=== PATIENT | female | born 1950 | race Two or more races ===

== ENCOUNTER 2024-06-22 04:05 | Inpatient (IN) | payer OTHER ==
[~2024-06-22] VITALS: Ht 177.8 cm; Wt 96.2 kg
[2024-06-22] VITALS (9 sets, daily range): BP systolic 106–149; BP diastolic 51–74; PULSE 65–78; RESP 17–22; TEMP 97.7–99.4; O2SAT 90–97
--- NOTE | 2024-06-22 04:21 | ED.PDOC ---
History of Present Illness HPI Comments 73-year-old female with PMHx COPD presents with a chief complaint of SOB, dry mouth, loss of taste, and generalized weakness. Patient mentions that she has been feeling this way since 06/16/2024. Patient mentions that she believed that she was going to get better, but states that she has only been getting worse. Per EMS, she was given a dual nebulizer treatment and is now sating at 91% on 2L. Chief Complaint: Shortness of Breath Time Seen by MD: 04:08 Reviewed Notes: Medications, Allergies Allergies: Coded Allergies: Penicillins (Verified Allergy, Unknown, 06/22/24) Information Source: Patient, Emergency Med Personnel Mode of Arrival: EMS Severity: Moderate Timing: Days Duration: Since onset Prehospital treatment: None Past Medical History PAST MEDICAL HISTORY: COPD Surgical History: Denies all surgeries LOCKSTITCH BINDER History: Denies all LOCKSTITCH BINDER Hx Family History Family History: Reviewed,noncontributory to illness Social History Smoker: Non-Smoker Alcohol: Denies ETOH Use Drugs: Denies Drug Use Lives In: Home Constitutional: reports: weakness; denies: chills, diaphoresis, fatigue, fever, malaise, sweats, others EENTM: denies: blurred vision, double vision, ear bleeding, ear discharge, ear drainage, ear pain, ear ringing, eye pain, eye redness, hearing loss, mouth pain, mouth swelling, nasal discharge, nose bleeding, nose congestion, nose pain, photophobia, tearing, throat pain, throat swelling, voice changes, others Respiratory: reports: shortness of breath; denies: cough, hemoptysis, orthopnea, SOB at rest, SOB with excertion, stridor, wheezing, others Cardiovascular: denies: chest pain, dizzy spells, diaphoresis, Dyspnea on exertion, edema, irregular heart beat, left arm pain, lightheadedness, palpitations, PND, syncope, others Gastrointestinal: denies: abdomen distended, abdominal pain, blood streaked bowels, constipated, diarrhea, dysphagia, difficulty swallowing, hematemesis, melena, nausea, poor appetite, poor fluid intake, rectal bleeding, rectal pain, vomiting, others Genitourinary: denies: abnormal vagina bleeding, burning, dyspareunia, dysuria, flank pain, frequency, hematuria, incontinence, pain, , vagina discharge, urgency, others Neurological: denies: dizziness, fainting, headache, left sided numbness, left sided weakness, numbness, paresthesia, pre-existing deficit, right sided numbness, right sided weakness, seizure, speech problems, tingling, tremors, weakness, others Musculoskeletal: denies: back pain, gout, joint pain, joint swelling, muscle pain, muscle stiffness, neck pain, others Integumetry: denies: bruises, change in color, change in hair/nails, dryness, laceration, lesions, lumps, rash, wounds, others Allergic/Immunocompromised: denies: Difficulty Healing, Frequent Infections, Hives, Itching, others Hematologic/Lymphatic: denies: anemia, blood clots, easy bleeding, easy bruising, swollen glands, others Endocrine: reports: excessive thirst; denies: excessive hunger, excessive sweating, excessive urination, flushing, intolerance to cold, intolerance to heat, unexplained weight gain, unexplained weight loss, others Psychiatric: denies: anxiety, bipolar disorder, depression, hopeless, panic disorder, schizophrenia, sleepless, suicidal, others All Other Systems: Reviewed and Negative Physical Exam General Appearance: No Apparent Distress, Normal HEENT: Normal ENT Inspection, Pharynx Normal, TMs Normal Neck: Full Range of Motion, Non-Tender, Normal, Normal Inspection Respiratory: Chest Non-Tender, Lungs Clear, No Accessory Muscle Use, No Respiratory Distress, Normal Breath Sounds Cardiovascular: No Edema, No JVD, No Murmur, No Gallop, Normal Peripheral Pulses, Regular Rate/Rhythm Breast Exam: Deferred Gastrointestinal: No Organomegaly, Non Tender, No Pulsatile Mass, Normal Bowel Sounds, Soft Genitalia: Deferred Pelvic: Deferred Rectal: Deferred Extremities: No calf tenderness, Normal capillary refill, Normal inspection, Normal range of motion, Non-tender, No pedal edema Musculoskeletal : Apperance: Normal Neurologic: Alert, bio medical technician II-XII nml as Tested, No Motor Deficits, Normal Affect, Normal Mood, No Sensory Deficits Cerebellar Function: Normal Reflexes: Normal Skin: Dry, Normal Color, Warm Lymphatic: No Adenopathy Was a procedure done? Was a procedure done?: No Differential Dx Considerations may include: Differential diagnosis includes but is not limited to: asthma, pneumonia, congestive heart failure, pleural effusion, empyema, pulmonary embolus, and others X-Ray, Labs, Meds, VS Vital Signs Date Time Temp Pulse Resp B/P (MAP) Pulse Ox O2 Delivery O2 Flow Rate FiO2 06/22/24 05:16 99.4 76 20 129/54 (79) 95 99.4 06/22/24 05:16 76 20 97 Nasal Cannula* 2 28 06/22/24 04:42 18 98 Nasal Cannula* 3 32 06/22/24 04:18 80 06/22/24 04:13 99.8 82 18 117/71 (86) 99 Lab Test 06/22/24 04:49 Range/Units White Blood Count Pending Red Blood Count Pending Hemoglobin Pending Hematocrit Pending Mean Corpuscular Volume Pending Mean Corpuscular Hemoglobin Pending Mean Corpuscular Hemoglobin Concent Pending Red Cell Distribution Width Pending Platelet Count Pending Mean Platelet Volume Pending Neutrophils (%) (Auto) Pending Lymphocytes (%) (Auto) Pending Monocytes (%) (Auto) Pending Basophils (%) (Auto) Pending Neutrophils # (Auto) Pending Lymphocytes # (Auto) Pending Monocytes # (Auto) Pending Sodium Level Pending Potassium Level Pending Chloride Level Pending Carbon Dioxide Level Pending Anion Gap Pending Blood Urea Nitrogen Pending Creatinine Pending Glomerular Filtration Rate Calc Pending BUN/Creatinine Ratio Pending Serum Glucose Pending Calcium Level Pending Magnesium Level Pending Total Bilirubin Pending Aspartate Amino Transferase (AST) Pending Alanine Aminotransferase (ALT) Pending Alkaline Phosphatase Pending Troponin I High Sensitivity Pending B-Type Natriuretic Peptide Pending Total Protein Pending Albumin Pending Current Medications Medications (Trade) Dose Ordered Sig/Matilda Route Start Time Stop Time Status Last Admin Prednisone 40 mg ONCE ONCE PO 06/22/24 04:15 06/22/24 04:17 DC 06/22/24 05:14 Albuterol (Ventolin Medneb) 5 mg ONCE ONCE NEB 06/22/24 04:15 06/22/24 04:17 DC 06/22/24 04:42 Ipratropium [place] (Atrovent Medneb) 0.5 mg ONCE ONCE NEB 06/22/24 04:15 06/22/24 04:17 DC 06/22/24 04:42 Magnesium Sulfate/ Dextrose 100 ml @ 100 mls/hr Q1H IV 06/22/24 04:15 06/22/24 06:14 06/22/24 05:30 Time of 1ST Reevaluation: 04:38 Reevaluation 1ST: Unchanged Time of 2ND Reevaluation: 05:39 Reevaluation 2ND: Unchanged Patient Education/Counseling: Diagnosis, Treatment, Prognosis Family Education/Counseling: No Family Present Sepsis Sepsis Reasesment Focused Exam Sepsis focused exam: focus exam completed (05:30) Departure 1 Departure Time of Disposition: 05:39 Impression: Primary Impression: Respiratory failure with hypoxia Additional Impressions: URI (upper respiratory infection) Bronchospasm Disposition: ADMITTED INPATIENT Admit to: Med Surg Condition: Guarded Discharged With: Self Critical Care Note Critical Care Time?: No Stability Stability form required: No Heart Score Heart Score: Heart Score Response (Comments) Value History Slightly Suspicious 0 EKG Normal 0 Age >65 2 Risk Factors 1 or 2 risk factors 1 Troponin Normal limit 0 Total 3 I personally scribed for BRO MENDEZ MD ([email or web address]) on 06/22/24 at 04:21. Electronically submitted by Aristides Chow ([email or web address]). BRO MENDEZ MD Jun 22, 2024 04:21
[2024-06-22] MEDS: IPRATROPIUM BROM 0.5 MG/2.5ML INH SOL NEB ONE (04:42)
[2024-06-22] MEDS: ALBUTEROL SULF 2.5 MG/0.5ML(0.5%) NEB SOLN NEB ONE (04:42)
[2024-06-22] MEDS: predniSONE 20 MG TAB PO ONE (05:14)
[2024-06-22 05:28] LABS: Alanine Aminotransferase 13 U/L (7-40); Alkaline Phosphatase 93 U/L (46-116); Calcium 9.2 mg/dL (8.7-10.4); Carbon Dioxide 31 mmol/L (20-31); Chloride 102 mmol/L (98-107)
[2024-06-22 05:29] LABS: Anion Gap 9 (5-15); Aspartate Aminotransferase 29 U/L (13-40); Bilirubin, Total 0.4 mg/dL (0.2-1.0); Sodium 142 mmol/L (136-145); Total Protein 6.7 g/dL (5.7-8.2)
[2024-06-22] MEDS: MAGNESIUM SULFATE 1GM/100ML 100 ML IV SCH (05:30)
[2024-06-22 05:41] LABS: BUN/Creatinine Ratio 6.8 (10.0-20.0); Blood Urea Nitrogen < 5 mg/dL (9-23); Glucose 107 mg/dL (74-106); Magnesium 1.5 mg/dL (1.6-2.6); Potassium 2.7 mmol/L (3.5-5.1)
--- NOTE | 2024-06-22 06:11 | DVH ---
CHEST RADIOGRAPH Indication: SOB Technique: Single frontal view of the chest was obtained Comparison: None FINDINGS: Lines and Tubes: None Lungs: No focal consolidation. Pleura: No effusion. No pneumothorax. Cardiomediastinal contours: Unremarkable Bones: No acute osseous abnormality. IMPRESSION: 1. No acute cardiopulmonary disease.
[2024-06-22 06:32] LABS: Rapid Influenza B Negative (Negative)
[2024-06-22 06:33] LABS: Rapid Influenza A Positive (Negative)
[2024-06-22] MEDS: ONDANSETRON HCL 4 MG/2 ML VIAL IV ONE (06:41)
[2024-06-22] MEDS ORDERED: POTASSIUM CHL 20MEQ/100ML 100 ML IV SCH (08:15)
[2024-06-22] MEDS ORDERED: ONDANSETRON HCL 4 MG/2 ML VIAL IV PRN (08:15)
[2024-06-22] MEDS ORDERED: DOCUSATE SOD 100 MG CAP PO PRN (08:15)
[2024-06-22] MEDS ORDERED: NITROGLYCERIN 0.4 MG SL TAB SL PRN (09:15)
[2024-06-22] MEDS ORDERED: MORPHINE SULFATE INJ 2 MG/ml SYRG IV PRN (09:15)
--- NOTE | 2024-06-22 09:17 | DVHHP2 ---
History of Present Illness Reason for Visit: Acute respiratory failure with hypoxia History of Present Illness Patient is a 73-year-old female with past medical history thyroid disease, HLD, and COPD who presented to [facility] ED complaint of shortness of breaths. Patient reports symptoms progressively get worse with weakness dry mouth, loss of taste, shortness of breaths when ambulating, on exertion, SOB at rest, getting worse that prompted this visit. Patient was seen and evaluated in the ED, laboratory data shows WBC 3.6, platelets 286, sodium 142, potassium 2.7, magnesium 1.5, BUN five, creatinine 0 seven four, GFR 86, glucose 107, troponin 30, BNP 46.49, blood pressure 139/59, rate 73, temperature 9.4 F, O2 saturation 95% BiPAP. Chest x-ray show no acute cardiopulmonary disease. Patient was given electrolyte replacement, please see medication orders section in the computer. On my assessment, patient denied chest pain, no headache, no dizziness, diaphoresis, currently on oxygen, no diarrhea,, no vomiting, no fever, no chills. Patient was admitted further evaluation and medical management. Past Medical History COPD, thyroid disease HLD. Past Surgical History Denies all surgeries Family History Reviewed, noncontributory to the management of this case. Past Social History The patient lives at home, denies smoking, alcohol or illicit drugs abuse. Review of Systems Constitutional: Yes: Weakness; No: Fever, Chills, Sweats, Malaise, Other Eyes: No: Pain, Vision change, Conjunctivae inflammation, Eyelid inflammation, Other, Redness ENT: No: Ear pain, Ear discharge, Nose pain, Nose discharge, Nose congestion, Mouth pain, Mouth swelling, Throat pain, Throat swelling, Other Respiratory: Shortness of breath, SOB with excertion, Other (SOB at rest); No: Cough, Dry, Wheezing, Hemoptysis, Pleuritic Pain, Sputum, Wheezing Cardiovascular: No: Chest Pain, Palpitations, Orthopnea, Paroxysmal Noc. Dyspnea, Edema, Lt Headedness, Other Gastrointestinal: No: Nausea, Vomiting, Abdominal Pain, Diarrhea, Constipation, Melena, Hematochezia, Other Genitourinary: No Dysuria, No Frequency, No Incontinence, No Hematuria, No Retention, No Other Musculoskeletal: No: other, neck pain, shoulder pain, arm pain, back pain, hand pain, leg pain, foot pain Skin: No: Rash, Lesions, Jaundice, Bruising, Other Neurological: No: Weakness, Numbness, Incoordination, Change in speech, Confusion, Seizures, Other Allergies: Coded Allergies: Penicillins (Verified Allergy, Unknown, 06/22/24) Medications Current Medications Medications Dose Ordered Sig/Matilda Route Start Time Stop Time Status Last Admin Dose Admin Albuterol 2.5 mg Q4HPRN PRN NEB 06/22/24 08:15 Ipratropium [place] 0.5 mg Q4HPRN PRN NEB 06/22/24 08:15 Methylprednisolone Sodium Succinate 40 mg Q8HR IV 06/22/24 14:00 Famotidine 20 mg Q12HR IV 06/22/24 10:00 Levothyroxine Sodium 50 mcg QAM@0600 PO 06/23/24 06:00 Potassium Chloride 100 ml @ 50 mls/hr Q2H IV 06/22/24 08:15 06/22/24 12:14 Sodium Chloride 10 ml Q8HR IV 06/22/24 14:00 Acetaminophen/ Hydrocodone Bitart 1 tab Q4HP PRN PO 06/22/24 08:15 Ondansetron HCl 4 mg Q4HP PRN IV 06/22/24 08:15 Docusate Sodium 100 mg BIDPRN PRN PO 06/22/24 08:15 Acetaminophen 650 mg Q6HP PRN PO 06/22/24 08:15 Exam Vital Signs Vital Signs Date Time Temp Pulse Resp B/P (MAP) Pulse Ox O2 Delivery O2 Flow Rate FiO2 06/22/24 08:00 64 06/22/24 07:25 Bi-Pap+ 30 30 06/22/24 06:30 137/59 06/22/24 05:16 99.4 20 95 99.4 06/22/24 05:16 2 General Appearance: Alert, Oriented X3, Cooperative, No acute distress HEENT: Atraumatic, PERRLA, EOMI, Mucous membr. moist/pink Respiratory: Clear to auscultation, Normal air movement Cardiovascular: Regular rate, Normal S1, Normal S2, No murmurs Abdominal: Normal bowel sounds, Soft, No tenderness, No hepatospenomegaly, No masses Extremities: No clubbing, No cyanosis, No edema, Normal pulses, No tenderness/swelling Skin: No rashes, No breakdown, No significant lesion Neuro: Normal speech, Normal tone, Sensation intact, Cranial nerves 3-12 NL, Reflexes 2+, Other (Generalized weakness) Psych/Mental Status: Mental status NL, Mood NL Labs/Xrays Labs Test 06/22/24 05:55 06/22/24 05:50 06/22/24 04:50 06/22/24 04:49 Range/Units Blood Gas Specimen Type Venous Blood Gas Sample Site Vbg - n/a Blood Gas Patient Temperature 37.0 Arterial Blood Date Drawn [id number] Aldo Test N/a Venous Blood pH 7.157 *L 7.320-7.430 Venous Blood pCO2 at Patient Temp 89.2 *H 38.0-54.0 mmHg Venous Blood pO2 at Patient Temp < 36.5 23.0-48.0 mmHg Venous Blood HCO3 30.9 H 22.0-29.0 mmol/L Venous Blood Base Excess -0.8 -2.0-3.0 mmol/L Blood Gas Liter Flow 2.00 Blood Gas Modality Nasal cannula FiO2 % 28.0 Blood Gas Critical Value Read Back Yes Blood Gas Notified Whom eduardo Mendez md Blood Gas Notified Time [id number] Blood Gas Notified By Kit larson rrt Troponin I High Sensitivity 31 </=34 ng/L Influenza Type A Antigen Positive Negative Influenza Type B Antigen Negative Negative Sodium Level 142 136-145 mmol/L Potassium Level 2.7 L 3.5-5.1 mmol/L Chloride Level 102 98-107 mmol/L Carbon Dioxide Level 31 20-31 mmol/L Anion Gap 9 5-15 Blood Urea Nitrogen < 5 L 9-23 mg/dL Creatinine 0.74 0.550-1.02 mg/dL Glomerular Filtration Rate Calc 86 >90 mL/min BUN/Creatinine Ratio 6.8 L 10.0-20.0 Serum Glucose 107 H 74-106 mg/dL Calcium Level 9.2 8.7-10.4 mg/dL Magnesium Level 1.5 L 1.6-2.6 mg/dL Total Bilirubin 0.4 0.2-1.0 mg/dL Aspartate Amino Transferase (AST) 29 13-40 U/L Alanine Aminotransferase (ALT) 13 7-40 U/L Alkaline Phosphatase 93 46-116 U/L B-Type Natriuretic Peptide 46.49 0-100 pg/mL Total Protein 6.7 5.7-8.2 g/dL Albumin 4.0 3.2-4.8 g/dL PATIENT: NATASHA MORGAN ACCT: [id number] UNIT: [id number] : 1950 LOC: ER ROOM / BED: / AGE / SEX: 73 / F ADM STATUS: REG ER SERVICE [id number] ORDERING PHYSICIAN: BRO MENDEZ MD PROCEDURE(s): CXRP - CHEST PORTABLE REASON: SOB ORDER NUMBER(s): [id number], ACCESSION NUMBER(s): [id number] CHEST RADIOGRAPH Indication: SOB Technique: Single frontal view of the chest was obtained Comparison: None FINDINGS: Lines and Tubes: None Lungs: No focal consolidation. Pleura: No effusion. No pneumothorax. Cardiomediastinal contours: Unremarkable Bones: No acute osseous abnormality. IMPRESSION: 1. No acute cardiopulmonary disease. Assessment/Plan Assessment/Plan Respiratory failure with hypoxia URI (upper respiratory infection) Bronchospasm Generalized weakness Electrolyte imbalance Plan 1. Admit to telemetry unit 2. Breathing treatment 3. Pain control management 4. Management of fluids and electrolytes 5. Consultation for pulmonology 6. Diagnostic tests chest x-ray 7. DVT prophylaxis on SCDs 8. Repeat labs CBC, CMP in a.m. 9. Continue with current medical management 10. Treatment plan discussed with patient and RN. Patient verbalized understanding. Plan discussed with: Patient, Other (RN) My Orders Orders - DUC VILLA DNP Procedure Category Date Status Time *Consult CONS 06/22/24 Transmitted / 08:05 Albuterol Medneb PHA 06/22/24 In Process (Ventolin Medneb) 08:15 Ipratropium Medneb PHA 06/22/24 In Process (Atrovent Medneb) 08:15 Methylprednisolone PHA 06/22/24 In Process Sod Succ (Solu Medrol 14:00 Famotidine Injection PHA 06/22/24 In Process (Pepcid Injection) 10:00 Levothyroxine Tablet PHA 06/23/24 In Process (Synthroid Tablet) 06:00 Potassium Chl PHA 06/22/24 In Process 20meq/100ml 08:15 Allergies MARNI 06/22/24 In Process 08:05 Code Status CODE 06/22/24 Transmitted 08:05 Sodium Chloride Lock PHA 06/22/24 In Process (Saline Lock Ns) 14:00 Docusate Sodium PHA 06/22/24 In Process Capsule (Colace 08:15 Complete Blood Count LAB 06/23/24 Verified 04:00 Comprehensive LAB 06/23/24 Verified Metabolic Panel 04:00 Cardiac DIET 06/22/24 Transmitted Diet-2gna,Lofat,Lochol Breakfast Condition: Serious MARNI 06/22/24 In Process 08:05 Acetaminophen Tablet PHA 06/22/24 In Process (Tylenol Tablet) 08:15 Bedrest With Bathroom MARNI 06/22/24 In Process Privileg 08:05 Sequential [facility] 06/22/24 In Process Compression Device Oxygen Per Hour RT 06/22/24 Verified 08:05 Hydrocodone-Acet PHA 06/22/24 In Process 5/325mg Tab ([place] 08:15 Ondansetron Hcl PHA 06/22/24 In Process (Zofran) 08:15 Admit ADMIT 06/22/24 Verified 09:15 Nitroglycerin [facility] 06/22/24 Verified Sublingual (Ntrostat 09:15 Morphine Sulfate [facility] 06/22/24 Verified Injection 09:15 Notify Md Of Changes [facility] 06/22/24 Verified From Base 09:15 Drum Operator For [facility] 06/22/24 Verified 24 Hours 09:15 Emergency Dysrhythmia [facility] 06/22/24 Verified Protocol 09:15 Rhythm Strips Once [facility] 06/22/24 Verified Every Shift 09:15 Oxygen By Nasal RT 06/22/24 Verified Cannula 09:15 Problem List: (1) Respiratory failure with hypoxia (2) Electrolyte imbalance (3) Bronchospasm (4) URI (upper respiratory infection) (5) Generalized weakness Date of Service: Jun 22, 2024 Billing Provider: DUC VILLA DNP Common Visit Codes: [id number]-[id number] INP/OBS CARE (HIGH) DUC VILLA DNP Jun 22, 2024 09:16
[2024-06-22 09:58] LABS: Basophils # (auto) 0 10 ^3/uL (0-0.2); Basophils % (auto) 0.6 % (0.0-2.0); Eosinophils # (auto) 0 10 ^3/uL (0-0.8); Eosinophils % (auto) 0.1 % (0.0-7.0); Hematocrit 35.7 % (36.0-46.0); Hemoglobin 11.9 g/dL (12.2-16.2); Lymphocytes # (auto) 0.6 10 ^3/uL (0.4-5.4); Lymphocytes % (auto) 15.4 % (10.0-50.0); Mean Corpuscular Hemoglobin 28.4 pg (28.0-32.0); Mean Corpuscular Hgb Conc. 33.2 g/dL (32.0-36.0); Mean Corpuscular Volume 85.5 fL (80.0-100.0); Monocytes # (auto) 0.2 10 ^3/uL (0-1.3); Monocytes % (auto) 6.5 % (0.0-12.0); Neutrophils # (auto) 2.8 10 ^3/uL (1.6-8.6); Neutrophils % (auto) 77.4 % (37.0-80.0); Platelet Count (auto) 286 10^3/uL (140-450); Red Blood Cells 4.18 10^6/uL (4.0-5.20); Red Cell Distribution Width 14.4 % (11.8-14.3); White Blood Cell 3.6 10^3/uL (4.4-10.8)
[2024-06-22] MEDS: POTASSIUM CHL 20 Meq TABLET PO ONE (10:09)
[2024-06-22] MEDS: FAMOTIDINE (10MG/ML) 2ML VL IV SCH (10:14)
[2024-06-22 10:21] LABS: Base Excess 6.6 mmol/L (-2.0-3.0)
[2024-06-22] MEDS: POTASSIUM CHL 20MEQ/100ML 100 ML IV SCH (10:27)
--- NOTE | 2024-06-22 13:09 | ECG ---
[facility] Test Date: 2024-06-22 Test Time: 04:18:26 Pat Name: NATASHA GUEVARA Department: ER Room: 0206T A Gender: F Network Liaison: : 1950 Requested By: BRO MENDEZ Order Number: [id number] Reading MD: Rigoberto Jennings Measurements Intervals [place] Rate: 80 P: 25 MN: 148 QRS: -25 QRSD: 80 T: 0 QT: 401 QTc: 463 Interpretive Statements Sinus rhythm Left atrial enlargement Borderline left axis deviation Borderline abnrm T, anterolateral leads Electronically Signed On 06-22-2024 17:55:54 PST by Rigoberto Jennings Please click the below link to view image of tracing.
[2024-06-22] MEDS: methylPREDNISolone SOD SUCC 40 MG/ML VL IV SCH (14:00)
[2024-06-22] MEDS: SODIUM CHLOR 0.9% PF (SALINE LOCK) 10ML VIAL/SYR IV SCH (14:00)
[2024-06-22] MEDS: IPRATROPIUM BROM 0.5 MG/2.5ML INH SOL NEB PRN (18:10)
[2024-06-22] MEDS: ALBUTEROL SULF 2.5 MG/0.5ML(0.5%) NEB SOLN NEB PRN (18:10)
--- NOTE | 2024-06-22 22:24 | DVHINCON2 ---
Date of service: Jun 22, 2024 Referring Physician Marvin Francis NP Reason for Consultation Acute hypoxic respiratory failure and COPD exacerbation. History of Present Illness A 73-year-old woman with PMHx of COPD, thyroid disease, and hyperlipidemia who presents to ED today with c/o shortness of breath. Reports symptoms progressively worsened with weakness, dry mouth, loss of taste, SOB with exertion and at rest, which prompted this visit. Workup in ED shows WBC 3.6, platelets 286, sodium 142, potassium 2.7, magnesium 1.5, BUN 5, creatinine 0.74, GFR 86, glucose 107, troponin 30, and BNP 46.49. O2 saturation was 95% on BiPAP. Chest x-ray showed no acute cardiopulmonary disease. Patient was admitted for further care and pulmonary consultation is requested for evaluation and management d/t acute hypoxic respiratory failure and COPD exacerbation. Review of Systems: 14-point review of systems negative unless otherwise noted above. Past Medical History: COPD, thyroid disease, HLD. Past Surgical History: Denies Medications: Reviewed. Allergies: Penicillins. Family History: No family history of premature CAD. No family history of lung disorders. Social History: Nonsmoker. No alcohol or illicit drug use. Allergies: Coded Allergies: Penicillins (Verified Allergy, Unknown, 06/22/24) Home Meds Reported Medications Furosemide (Furosemide) 20 Mg Tab, 20 MG PO DAILY, MG 06/24/24 Oxycodone W/ Acetaminophen (Percocet 5/325MG) 1 Tab Tb, 1 TAB PO BID, #60 TAB 06/23/24 Omeprazole (Gnp Omeprazole) 20 Mg Tab, 1 TAB PO DAILY, #90 TAB 1 Refill 06/23/24 Omeprazole (Prilosec Susp (For Gt)) 20 Mg Ss, 20 MG GT, ML 06/23/24 Aspirin (Aspir-Low) 81 Mg Tab, 81 MG PO DAILY for 30 Days, MG 06/23/24 Citalopram Hydrobromide (Citalopram Hydrobromide) 20 Mg Tab, 20 MG PO DAILY for 30 Days, MG 06/23/24 Current Medications Current Medications Medications (Trade) Dose Ordered Sig/Matilda Route PRN Reason Start Time Stop Time Status Last Admin Magnesium Sulfate/ Dextrose 100 ml @ 100 mls/hr Q1H IV 06/22/24 04:15 06/22/24 06:14 DC 06/22/24 06:30 Albuterol (Ventolin Medneb) 2.5 mg Q4HPRN PRN NEB SHORTNESS OF BREATH 06/22/24 08:15 06/22/24 18:10 Ipratropium [place] (Atrovent Medneb) 0.5 mg Q4HPRN PRN NEB SHORTNESS OF BREATH 06/22/24 08:15 06/22/24 18:10 Methylprednisolone Sodium Succinate (Solu Medrol) 40 mg Q8HR IV 06/22/24 14:00 06/22/24 14:00 Famotidine (Pepcid Injection) 20 mg Q12HR IV 06/22/24 10:00 06/22/24 10:14 Levothyroxine Sodium (Synthroid Tablet) 50 mcg QAM@0600 PO 06/23/24 06:00 Potassium Chloride 100 ml @ 50 mls/hr Q2H IV 06/22/24 08:15 06/22/24 09:47 DC Sodium Chloride (Saline Lock Ns) 10 ml Q8HR IV 06/22/24 14:00 06/22/24 14:00 Acetaminophen/ Hydrocodone Bitart (Hackberry 5/325MG Tab) 1 tab Q4HP PRN PO MODERATE PAIN (4-6 PAIN SCALE) 06/22/24 08:15 Ondansetron HCl (Zofran) 4 mg Q4HP PRN IV NAUSEA / VOMITING 06/22/24 08:15 Docusate Sodium (Colace Capsule) 100 mg BIDPRN PRN PO FOR CONSTIPATION 06/22/24 08:15 Acetaminophen (Tylenol Tablet) 650 mg Q6HP PRN PO PAIN SCALE 1-3 OR TEMP>100.4 06/22/24 08:15 Nitroglycerin (Ntrostat Sublingual) 0.4 mg Q5MINP PRN SL FOR CHEST PAIN 06/22/24 09:15 Morphine Sulfate 2 mg Q30M PRN IV FOR CHEST PAIN 06/22/24 09:15 Potassium Chloride 100 ml @ 50 mls/hr Q2H IV 06/22/24 10:00 06/22/24 13:59 DC 06/22/24 15:00 Guaifenesin (Robitussin Plain Liquid) 200 mg Q4HP PRN PO FOR COUGH 06/22/24 18:30 Vital Signs Vital Signs Date Time Temp Pulse Resp B/P (MAP) Pulse Ox O2 Delivery O2 Flow Rate FiO2 06/22/24 21:00 97.7 78 19 149/74 (99) 90 97.7 06/22/24 20:00 Nasal Cannula* 3 32 Physical Exam Gen.: Patient lying in bed in no apparent distress. On supplemental oxygen. Head: Normocephalic, atraumatic. Eyes: EOMI/PERRLA. Ears: Normal hearing. Normal anatomy. Neck/trachea: Trachea midline, supple. Nose: Normal external anatomy. Mouth: Moist mucous membranes. Chest: Decreased air entry bilaterally. No wheezing or rhonchi. Cardiovascular: Positive S1, positive S2. Regular rate and rhythm. Abdomen: Positive bowel sounds in all 4 quadrants. Soft, non-tender, non- distended. : Deferred. Rectal: Deferred. Skin: Warm, dry. Intact. Extremities: 2+ radial pulses bilaterally. No lower extremity edema. Neuro: Awake, alert, oriented x3. No gross motor or sensory deficits. Cranial nerves II through XII intact. Gait not assessed. Labs/Diagnostic Data Labs Test 06/22/24 09:27 06/22/24 08:18 06/22/24 05:55 06/22/24 05:50 Range/Units White Blood Count 3.6 L 4.4-10.8 10^3/uL Red Blood Count 4.18 4.0-5.20 10^6/uL Hemoglobin 11.9 L 12.2-16.2 g/dL Hematocrit 35.7 L 36.0-46.0 % Mean Corpuscular Volume 85.5 80.0-100.0 fL Mean Corpuscular Hemoglobin 28.4 28.0-32.0 pg Mean Corpuscular Hemoglobin Concent 33.2 32.0-36.0 g/dL Red Cell Distribution Width 14.4 H 11.8-14.3 % Platelet Count 286 140-450 10^3/uL Mean Platelet Volume 7.7 6.9-10.8 fL Neutrophils (%) (Auto) 77.4 37.0-80.0 % Lymphocytes (%) (Auto) 15.4 10.0-50.0 % Monocytes (%) (Auto) 6.5 0.0-12.0 % Eosinophils (%) (Auto) 0.1 0.0-7.0 % Basophils (%) (Auto) 0.6 0.0-2.0 % Neutrophils # (Auto) 2.8 1.6-8.6 10 ^3/uL Lymphocytes # (Auto) 0.6 0.4-5.4 10 ^3/uL Monocytes # (Auto) 0.2 0-1.3 10 ^3/uL Eosinophils # (Auto) 0 0-0.8 10 ^3/uL Basophils # (Auto) 0 0-0.2 10 ^3/uL Nucleated Red Blood Cells 0.0 % Blood Gas Specimen Type Arterial Blood Gas Sample Site Right brachial Blood Gas Patient Temperature 37.0 Arterial Blood Date Drawn [id number] Arterial Blood pH 7.416 7.350-7.450 Arterial Blood Partial Pressure CO2 51.5 H 32.0-45.0 mmHg Arterial Blood Partial Pressure O2 75.8 L 83.0-108.0 mmHg Arterial Blood HCO3 32.4 H 21.0-28.0 mmol/L Arterial Blood Oxygen Saturation 93.7 L 94.0-98.0 % Arterial Blood Base Excess 6.6 H -2.0-3.0 mmol/L Arterial Blood Oxyhemoglobin 92.9 L 94.0-98.0 % Arterial Blood Carboxyhemoglobin 0.3 L 0.5-1.5 % Arterial Blood Methemoglobin 0.6 0.0-1.5 % Aldo Test N/a Blood Gas Total Hemoglobin 12.20 12.0-16.0 g/dL Blood Gas Set Respiration Rate 12.0 Blood Gas Modality Mask - bipap Blood Gas Spontaneous Rate 24 FiO2 % 30.0 Blood Gas Spontaneous Tidal Volume 450 Blood Gas EPAP 5 Blood Gas IPAP 12 Venous Blood pH 7.157 *L 7.320-7.430 Venous Blood pCO2 at Patient Temp 89.2 *H 38.0-54.0 mmHg Venous Blood pO2 at Patient Temp < 36.5 23.0-48.0 mmHg Venous Blood HCO3 30.9 H 22.0-29.0 mmol/L Venous Blood Base Excess -0.8 -2.0-3.0 mmol/L Blood Gas Liter Flow 2.00 Blood Gas Critical Value Read Back Yes Blood Gas Notified Whom eduardo Vines md Blood Gas Notified Time [id number] Blood Gas Notified By Kit larson rrt Troponin I High Sensitivity 31 </=34 ng/L Test 12/31/24 04:50 06/22/24 04:49 Range/Units Influenza Type A Antigen Positive Negative Influenza Type B Antigen Negative Negative Sodium Level 142 136-145 mmol/L Potassium Level 2.7 L 3.5-5.1 mmol/L Chloride Level 102 98-107 mmol/L Carbon Dioxide Level 31 20-31 mmol/L Anion Gap 9 5-15 Blood Urea Nitrogen < 5 L 9-23 mg/dL Creatinine 0.74 0.550-1.02 mg/dL Glomerular Filtration Rate Calc 86 >90 mL/min BUN/Creatinine Ratio 6.8 L 10.0-20.0 Serum Glucose 107 H 74-106 mg/dL Calcium Level 9.2 8.7-10.4 mg/dL Magnesium Level 1.5 L 1.6-2.6 mg/dL Total Bilirubin 0.4 0.2-1.0 mg/dL Aspartate Amino Transferase (AST) 29 13-40 U/L Alanine Aminotransferase (ALT) 13 7-40 U/L Alkaline Phosphatase 93 46-116 U/L B-Type Natriuretic Peptide 46.49 0-100 pg/mL Total Protein 6.7 5.7-8.2 g/dL Albumin 4.0 3.2-4.8 g/dL Assessment Impression: Acute hypoxic respiratory failure AE COPD Influenza Hx of nicotine dependence CARLOS Obesity, BMI 35.9 Plan: Supplemental oxygen 2 LPM NC Titrate to keep O2 sats above 92%. Taper O2 as tolerated. Tamiflu course Continue bronchodilators. Steroids Incentive spirometry Antitussive PRN cough. Monitor renal function. Monitor electrolytes. Supplement as necessary. Monitor ins and outs. Diet and lifestyle modifications for weight reduction Obesity - complicates all care DVT prophylaxis. D/w RN Crystal Prognosis: Poor given patient's multiple co-morbidities. Rest of plan per hospitalist and other consultants. Thank you, Marvin Francis NP, for allowing me to participate in this patient's care. Further recommendations will depend on the patient's clinical course. Please do not hesitate to contact me if you have any questions or concerns. This medical document was created using an electronic medical record system with [employer] system. Although these documentations are being carefully reviewed, there may still be some phonetic and typographical changes. The errors are purely typographical, due to imperfection on the software program, and do not reflect any compromise in the patient's medical care. Plan discussed with: Patient, Other (RN Celina/DOUGLAS Francis/) ANA HARDIN MD Jun 22, 2024 22:24
[2024-06-22] MEDS: ACETAMINOPHEN 325 MG TAB PO PRN (22:55)
[2024-06-22] MEDS: guaiFENesin 200 MG/10 ML UD PO PRN (22:56)
[2024-06-23] VITALS (9 sets, daily range): BP systolic 126–170; BP diastolic 52–70; PULSE 60–89; RESP 16–68; TEMP 97.5–98.7; O2SAT 94–99
[2024-06-23 06:03] LABS: Alanine Aminotransferase 14 U/L (7-40); Albumin 3.9 g/dL (3.2-4.8); Alkaline Phosphatase 85 U/L (46-116); Anion Gap 10 (5-15); BUN/Creatinine Ratio 11.3 (10.0-20.0); Calcium 9.3 mg/dL (8.7-10.4); Carbon Dioxide 30 mmol/L (20-31); Chloride 102 mmol/L (98-107); Potassium 3.6 mmol/L (3.5-5.1); Sodium 142 mmol/L (136-145)
[2024-06-23 06:04] LABS: Aspartate Aminotransferase 23 U/L (13-40); Total Protein 6.6 g/dL (5.7-8.2)
[2024-06-23] MEDS: LEVOTHYROXINE SODIUM 50 MCG TAB PO SCH (06:06)
[2024-06-23 06:09] LABS: Basophils # (auto) 0 10 ^3/uL (0-0.2); Basophils % (auto) 0.1 % (0.0-2.0); Eosinophils # (auto) 0 10 ^3/uL (0-0.8); Hematocrit 37.1 % (36.0-46.0); Hemoglobin 12.5 g/dL (12.2-16.2); Lymphocytes # (auto) 1.5 10 ^3/uL (0.4-5.4); Lymphocytes % (auto) 38.6 % (10.0-50.0); Mean Corpuscular Hgb Conc. 33.5 g/dL (32.0-36.0); Mean Corpuscular Volume 86.6 fL (80.0-100.0); Monocytes # (auto) 0.5 10 ^3/uL (0-1.3); Monocytes % (auto) 13.4 % (0.0-12.0); Neutrophils # (auto) 1.8 10 ^3/uL (1.6-8.6); Neutrophils % (auto) 47.9 % (37.0-80.0); Nucleated Red Blood Cells % 0.1 %; Platelet Count (auto) 316 10^3/uL (140-450); Red Blood Cells 4.29 10^6/uL (4.0-5.20); Red Cell Distribution Width 14.3 % (11.8-14.3); White Blood Cell 3.8 10^3/uL (4.4-10.8)
[2024-06-23 06:49] LABS: Bilirubin, Total 0.2 mg/dL (0.2-1.0); Blood Urea Nitrogen 9 mg/dL (9-23); Glucose 153 mg/dL (74-106)
[2024-06-23] MEDS: MAGNESIUM SULFATE 1GM/100ML 100 ML IV SCH (08:00)
[2024-06-23] MEDS: AZITHROMYCIN 500MG/ 250ML 250 ML IV SCH (08:43)
[2024-06-23] MEDS ORDERED: cefTRIAXone 1GM/50ML D5W 50 ML IV SCH (09:00)
[2024-06-23] MEDS: OSELTAMIVIR 75 MG CAP PO SCH (11:30)
[2024-06-23] MEDS ORDERED: ASPI-543 PO (12:14)
[2024-06-23] MEDS ORDERED: OMEP20TA PO (12:14)
[2024-06-23] MEDS ORDERED: PERCOT PO (12:14)
[2024-06-23] MEDS ORDERED: OME20GT GT (12:14)
[2024-06-23] MEDS ORDERED: CITA-77 PO (12:14)
[2024-06-23 13:23] LABS: COVID19 ANTIGEN SOFIA FIA NEGATIVE (NEGATIVE)
[2024-06-23 13:54] LABS: Lactic Acid w/Reflex 2.7 mmol/L (0.4-2.0)
[2024-06-23] MEDS ORDERED: SODIUM CHLORIDE 0.9% 250 ML IV ONE (14:00)
[2024-06-23] MEDS: LORazepam 0.5 MG TAB PO PRN (14:00)
[2024-06-23] MEDS ORDERED: SODIUM CHLORIDE 0.9% 1,000 ML IV ONE (14:15)
[2024-06-23] MEDS: SODIUM CHLORIDE 0.9% 250 ML IV ONE (14:15)
--- NOTE | 2024-06-23 14:38 | DVHPNRES ---
Progress Note Date Seen: Jun 23, 2024 Resident Creating Document: YAHAIRA BURGOS GOSIA Has the PT tested + for MRSA If YES, has PT been informed?: No Medical Necessity Reason Pt with a Central, PICC or Fol: No Subjective Review of Systems Patient is a 73-year-old female with a past medical history of thyroid disease, HLD, and COPD, who presented to [facility] ED with a complaint of shortness of breath for 1 week. The patient reports that her symptoms have progressively worsened, with weakness, dry mouth, loss of taste, and shortness of breath when ambulating, on exertion, and at rest, which has prompted this visit. PMHx: Sleep apnea, COPD, hyperlipidemia, hypothyroidism, PSHx: Noncontributory Family history: Noncontributory Social history: Patient lives in [place] with the family, came to the [facility] for family visits, ex-smoker, denies drinking or any other drug use Home medication: Omeprazole, citalopram, aspirin 81 mg Allergic history: Penicillin Patient reports: No new complaints, Feels better Changes from previous H/P or p: Changes Objective vital signs Vital Sign Date Time Temp Pulse Resp B/P (MAP) Pulse Ox O2 Delivery O2 Flow Rate FiO2 06/23/24 13:28 98.7 65 17 126/52 (76) 98 98.7 06/23/24 07:47 Nasal Cannula* 3 32 Total Intake and Output 06/22/24 06/22/24 06/23/24 15:00 23:00 07:00 Intake Total 200 ml 600 ml 650 ml Output Total 5 ml Balance 200 ml 600 ml 645 ml medications Current Medications Medications Dose Ordered Sig/Matilda Route Start Time Stop Time Status Last Admin Dose Admin Albuterol 2.5 mg Q4HPRN PRN NEB 06/22/24 08:15 06/22/24 18:10 2.5 MG Ipratropium [place] 0.5 mg Q4HPRN PRN NEB 06/22/24 08:15 06/22/24 18:10 0.5 MG Methylprednisolone Sodium Succinate 40 mg Q8HR IV 06/22/24 14:00 06/23/24 06:05 40 MG Famotidine 20 mg Q12HR IV 06/22/24 10:00 06/23/24 08:42 20 MG Levothyroxine Sodium 50 mcg QAM@0600 PO 06/23/24 06:00 06/23/24 06:06 50 MCG Sodium Chloride 10 ml Q8HR IV 06/22/24 14:00 06/23/24 13:06 10 ML Acetaminophen/ Hydrocodone Bitart 1 tab Q4HP PRN PO 06/22/24 08:15 Ondansetron HCl 4 mg Q4HP PRN IV 06/22/24 08:15 Docusate Sodium 100 mg BIDPRN PRN PO 06/22/24 08:15 Acetaminophen 650 mg Q6HP PRN PO 06/22/24 08:15 06/22/24 22:55 650 MG Nitroglycerin 0.4 mg Q5MINP PRN SL 06/22/24 09:15 Morphine Sulfate 2 mg Q30M PRN IV 06/22/24 09:15 Guaifenesin 200 mg Q4HP PRN PO 06/22/24 18:30 06/23/24 11:30 200 MG Azithromycin 250 ml @ 125 mls/hr DAILY IV 06/23/24 10:00 06/23/24 08:43 125 MLS/HR Oseltamivir Phosphate 75 mg Q12HR PO 06/23/24 10:45 06/28/24 10:44 06/23/24 11:30 75 MG Citalopram Hydrobromide 20 mg DAILY PO 06/24/24 10:00 Lorazepam 0.5 mg Q12HP PRN PO 06/23/24 12:45 Examination General Appearance: Alert, Oriented X3, Cooperative, in moderate respiratory distress. HEENT: Atraumatic, PERRLA, EOMI, Mucous membrane moist/pink Respiratory: Bilateral rhonchi Cardiovascular: Regular rate, Normal S1, Normal S2, No murmurs, no chest wall tenderness Abdominal: Normal bowel sounds, Soft, No tenderness, No hepatospenomegaly, No masses Extremities: No clubbing, No cyanosis, No edema, Normal pulses, No tenderness/swelling Skin: No rashes, No breakdown, No significant lesion Neuro: Normal gait, Normal speech, Strength at 5/5 X4 ext, Normal tone, Sensation intact, Cranial nerves 3-12 NL, Reflexes 2+ Psych/Mental Status: Mental status NL, Mood NL laboratory and microbiology Laboratory Tests 06/23/24 04:59 Test 1/1/25 04:59 Range/Units Serum Glucose 153 H 74-106 mg/dL Labs and/or images reviewed: Labs reviewed by me, Image(s) reviewed by me Problem List/Assessment/Plan Problem List/Assessment/Plan Acute on chronic hypoxic/hypercarbic respiratory failure likely due to COPD exacerbation/pneumonia Pneumonia, likely due to Gram-positive Gram-negative bacteria/viral COPD exacerbation Acute pneumonitis Sepsis, likely due to pneumonia Influenza type a positive Chest x-ray shows bilateral bronchovascular marking, with left upper lobe consolidation ABGs shows respiratory acidosis with metabolic compensation, raised lactic acid, and decreased WBC at 3.4 Check MRSA nares, blood/urine/sputum culture Empiric antibiotic ceftriaxone and azithromycin Injection with methylprednisolone 40 mg IV b.i.d. Nebulization Oxygen through nasal cannula Incentive spirometry Guaifenesin plain liquid 200 mg p.o. q.4 hours p.r.n. IV normal saline oseltamivir 75 mg b.i.d. Hypo thyroidism Continue levothyroxine 50 mEq daily Hypomagnesemia, repleted Hypokalemia, repleted Depression/anxiety Continue citalopram 20 mg daily Lorazepam 0.5 mg PO q.12 hours PRN DIET: Regular diet DVT PROPHYLAXIS: Lovenox GI PROPHYLAXIS:: Protonix BOWEL REGIMEN: Colace p.r.n. CODE STATUS: Goal of care discussed for more than 23 minutes, full code DISPOSITION: Med surge Patient's status discussed with the patient. Case discussed with Dr. Lizama Plan discussed with: Patient, Other (RN) My Orders My Orders Orders - YAHAIRA BURGOS RESDIJESE Procedure Category Date Status Time Mrsa Screen KYLE 06/23/24 In Process 07:47 Respiratory Syncytial LAB 06/23/24 Logged Virus Ag 07:47 Azithromycin 500mg/ PHA 06/23/24 In Process 250ml (Zithromax 50 10:00 Citalopram Tablet PHA 06/24/24 In Process (Celexa Tablet) 10:00 Lorazepam Tablet PHA 06/23/24 In Process (Ativan Tablet) 12:45 Sodium Chloride 0.9% PHA 06/23/24 Logged 14:15 Date of Service: Jun 23, 2024 Billing Provider: YASIR WHEAT MD Common Visit Codes: 98262-[id number] INP/OBS CARE(HIGH) YAHAIRA BURGOS RESDIENT Jun 23, 2024 14:38 YASIR WHEAT MD Jun 25, 2024 09:50
[2024-06-23] MEDS: ENOXAPARIN SOD 40 MG/0.4 ML SYRINGE SC ONE (14:45)
[2024-06-23] MEDS: MAGNESIUM SULFATE 1GM/100ML 100 ML IV ONE (14:45)
--- NOTE | 2024-06-23 23:09 | DVHPN2 ---
Progress Note - Dictate Date Seen: Jun 23, 2024 Has the PT tested + for MRSA If YES, has PT been informed?: No Medical Necessity Reason Pt with a Central, PICC or Fol: No Subjective Patient seen and examined at bedside. Remains on supplemental oxygen Overnight events reviewed. vital signs Vital Sign Date Time Temp Pulse Resp B/P (MAP) Pulse Ox O2 Delivery O2 Flow Rate FiO2 06/23/24 15:21 63 16 99 06/23/24 15:15 Nasal Cannula 3.0 06/23/24 15:15 32 06/23/24 13:28 98.7 126/52 (76) 98.7 Total Intake and Output 06/22/24 06/22/24 06/23/24 14:59 22:59 06:59 Intake Total 200 ml 600 ml 650 ml Output Total 5 ml Balance 200 ml 600 ml 645 ml medications Current Medications Medications Dose Ordered Sig/Matilda Route Start Time Stop Time Status Last Admin Dose Admin Albuterol 2.5 mg Q4HPRN PRN NEB 06/22/24 08:15 06/23/24 15:15 2.5 MG Ipratropium [place] 0.5 mg Q4HPRN PRN NEB 06/22/24 08:15 06/23/24 15:15 0.5 MG Levothyroxine Sodium 50 mcg QAM@0600 PO 06/23/24 06:00 06/23/24 06:06 50 MCG Sodium Chloride 10 ml Q8HR IV 06/22/24 14:00 06/23/24 21:55 10 ML Acetaminophen/ Hydrocodone Bitart 1 tab Q4HP PRN PO 06/22/24 08:15 Ondansetron HCl 4 mg Q4HP PRN IV 06/22/24 08:15 Docusate Sodium 100 mg BIDPRN PRN PO 06/22/24 08:15 Acetaminophen 650 mg Q6HP PRN PO 06/22/24 08:15 06/23/24 22:00 650 MG Nitroglycerin 0.4 mg Q5MINP PRN SL 06/22/24 09:15 Morphine Sulfate 2 mg Q30M PRN IV 06/22/24 09:15 Guaifenesin 200 mg Q4HP PRN PO 06/22/24 18:30 06/23/24 11:30 200 MG Azithromycin 250 ml @ 125 mls/hr DAILY IV 06/23/24 10:00 06/23/24 08:43 125 MLS/HR Oseltamivir Phosphate 75 mg Q12HR PO 06/23/24 10:45 06/28/24 10:44 06/23/24 21:53 75 MG Citalopram Hydrobromide 20 mg DAILY PO 06/24/24 10:00 Lorazepam 0.5 mg Q12HP PRN PO 06/23/24 12:45 06/23/24 14:00 0.5 MG Aspirin 81 mg DAILY PO 06/24/24 10:00 Omeprazole 20 mg DAILY PO 06/24/24 10:00 Methylprednisolone Sodium Succinate 40 mg BID IV 06/24/24 10:00 Enoxaparin Sodium 40 mg DAILY SC 06/24/24 10:00 objective Gen.: Patient lying in bed in no apparent distress. On supplemental oxygen. Head: Normocephalic, atraumatic. Eyes: EOMI/PERRLA. Ears: Normal hearing. Normal anatomy. Neck/trachea: Trachea midline, supple. Nose: Normal external anatomy. Mouth: Moist mucous membranes. Chest: Decreased air entry bilaterally. No wheezing or rhonchi. Cardiovascular: Positive S1, positive S2. Regular rate and rhythm. Abdomen: Positive bowel sounds in all 4 quadrants. Soft, non-tender, non- distended. : Deferred. Rectal: Deferred. Skin: Warm, dry. Intact. Extremities: 2+ radial pulses bilaterally. No lower extremity edema. Neuro: Awake, alert, oriented x3. No gross motor or sensory deficits. Cranial nerves II through XII intact. Gait not assessed. laboratory and microbiology Laboratory Tests 06/23/24 04:59 Test 06/23/24 04:59 Range/Units Serum Glucose 153 H 74-106 mg/dL Assessment/Plan Impression: Acute hypoxic respiratory failure AE COPD Pulmonary edema Influenza Hx of nicotine dependence CARLOS Obesity, BMI 35.9 Events: Remains on supplemental oxygen, 3 LPM NC Taper O2 as tolerated Tamiflu course Continue bronchodilators Continue steroids Continue antibiotics Incentive spirometry Monitor renal function. Monitor electrolytes. Supplement as necessary. Mag supplementation Labs and imaging reviewed. Rest of plan as noted below. Plan: Supplemental oxygen Titrate to keep O2 sats above 92%. Tamiflu course Continue bronchodilators. Steroids Incentive spirometry Antitussive PRN cough. Monitor renal function. Monitor electrolytes. Supplement as necessary. Monitor ins and outs. Diet and lifestyle modifications for weight reduction Obesity - complicates all care DVT prophylaxis. Prognosis: Poor given patient's multiple co-morbidities. Rest of plan per hospitalist and other consultants. Thank you, Marvin Francis NP, for allowing me to participate in this patient's care. Further recommendations will depend on the patient's clinical course. Please do not hesitate to contact me if you have any questions or concerns. This medical document was created using an electronic medical record system with [email or web address] dictation system. Although these documentations are being carefully reviewed, there may still be some phonetic and typographical changes. The errors are purely typographical, due to imperfection on the software program, and do not reflect any compromise in the patient's medical care. Plan discussed with: Patient, Other (JUAN MANUEL Chambers) ANA HARDIN MD Jun 23, 2024 23:09
[2024-06-24] VITALS (19 sets, daily range): BP systolic 13–146; BP diastolic 52–61; PULSE 57–80; RESP 14–26; TEMP 97.5–98.3; O2SAT 87–100
[2024-06-24] MEDS: hydrALAZINE HCL 20 MG/ML VL IV ONE (00:10)
[2024-06-24 06:17] LABS: Basophils # (auto) 0 10 ^3/uL (0-0.2); Basophils % (auto) 0.1 % (0.0-2.0); Eosinophils # (auto) 0 10 ^3/uL (0-0.8); Hematocrit 35.7 % (36.0-46.0); Hemoglobin 11.6 g/dL (12.2-16.2); Lymphocytes # (auto) 2.1 10 ^3/uL (0.4-5.4); Lymphocytes % (auto) 39.5 % (10.0-50.0); Mean Corpuscular Hemoglobin 27.8 pg (28.0-32.0); Mean Corpuscular Hgb Conc. 32.4 g/dL (32.0-36.0); Mean Corpuscular Volume 85.9 fL (80.0-100.0); Monocytes # (auto) 0.7 10 ^3/uL (0-1.3); Monocytes % (auto) 12.5 % (0.0-12.0); Neutrophils # (auto) 2.6 10 ^3/uL (1.6-8.6); Neutrophils % (auto) 47.9 % (37.0-80.0); Nucleated Red Blood Cells % 0.1 %; Platelet Count (auto) 299 10^3/uL (140-450); Red Blood Cells 4.16 10^6/uL (4.0-5.20); Red Cell Distribution Width 14.6 % (11.8-14.3); White Blood Cell 5.4 10^3/uL (4.4-10.8)
[2024-06-24 06:29] LABS: Alanine Aminotransferase 16 U/L (7-40); Albumin 3.6 g/dL (3.2-4.8); Alkaline Phosphatase 69 U/L (46-116); Anion Gap 8 (5-15); Aspartate Aminotransferase 24 U/L (13-40); BUN/Creatinine Ratio 19.4 (10.0-20.0); Blood Urea Nitrogen 12 mg/dL (9-23); Calcium 9.2 mg/dL (8.7-10.4); Carbon Dioxide 31 mmol/L (20-31); Chloride 104 mmol/L (98-107); Glucose 95 mg/dL (74-106); Sodium 143 mmol/L (136-145)
[2024-06-24 06:30] LABS: Total Protein 6.1 g/dL (5.7-8.2)
[2024-06-24 06:33] LABS: Bilirubin, Total 0.3 mg/dL (0.2-1.0); Potassium 2.6 mmol/L (3.5-5.1)
[2024-06-24] MEDS ORDERED: POTASSIUM CHL 20MEQ/100ML 100 ML IV SCH (08:30)
[2024-06-24] MEDS ORDERED: methylPREDNISolone SOD SUCC 40 MG/ML VL IV SCH (10:00)
[2024-06-24] MEDS: ENOXAPARIN SOD 40 MG/0.4 ML SYRINGE SC SCH (10:53)
[2024-06-24] MEDS: POTASSIUM EFFERVESENT TAB 25 MEQ GT ONE (10:54)
[2024-06-24] MEDS: ASPirin-EC 81 mg tab PO SCH (10:56)
[2024-06-24] MEDS: CITALOPRAM HYDROBR 20 MG TAB PO SCH (10:57)
[2024-06-24] MEDS: amLODIPine BESYLATE 5 MG TAB PO SCH (11:10)
[2024-06-24] MEDS ORDERED: FURO20TA3 PO (11:22)
[2024-06-24] MEDS: OMEPRAZOLE-SOD BICARB 20 MG POWDER PO SCH (13:49)
[2024-06-24] MEDS: MAGNESIUM SULFATE 1GM/100ML 100 ML IV SCH (16:09)
--- NOTE | 2024-06-24 16:54 | DVH ---
EXAM: XY CHEST XRAY 1 VIEW TECHNIQUE: Single frontal chest radiograph CLINICAL HISTORY: copd exacerb COMPARISON: XY CHEST PORTABLE on DOS: 06/22/24 Findings/Impression: Frontal chest radiograph demonstrates no acute osseous or superficial soft tissue abnormalities. The trachea is midline. The cardiac silhouette and mediastinum are within normal limits. No pneumothorax, pleural effusions, or consolidations.
[2024-06-24] MEDS: POTASSIUM CHLORIDE 60 MEQ, LIDOCAINE 1% (LOCAL ANESTH.) 6 ML in SODIUM CHL 0.9% 500 ML IV ONE (18:53)
[2024-06-24] MEDS: PANTOPRAZOLE 40 MG TAB PO ONE (18:54)
--- NOTE | 2024-06-24 19:15 | DVHPNRES ---
Progress Note Date Seen: Jun 24, 2024 Resident Creating Document: YAHAIRA BURGOS GOSIA Has the PT tested + for MRSA If YES, has PT been informed?: No Medical Necessity Reason Pt with a Central, PICC or Fol: No Subjective Review of Systems Patient is a 73-year-old female with a past medical history of thyroid disease, HLD, and COPD, who presented to [facility] ED with a complaint of shortness of breath for 1 week. The patient reports that her symptoms have progressively worsened, with weakness, dry mouth, loss of taste, and shortness of breath when ambulating, on exertion, and at rest, which has prompted this visit. PMHx: Sleep apnea, COPD, hyperlipidemia, hypothyroidism, PSHx: Noncontributory Family history: Noncontributory Social history: Patient lives in [place] with the family, came to the [facility] for family visits, ex-smoker, denies drinking or any other drug use Home medication: Omeprazole, citalopram, aspirin 81 mg Allergic history: Penicillin Today, patient seen and examined at the bedside. Patient is still better since admission, but still complained of shortness of breath. Patient reports: No new complaints, Feels better Objective vital signs Vital Sign Date Time Temp Pulse Resp B/P (MAP) Pulse Ox O2 Delivery O2 Flow Rate FiO2 06/24/24 18:50 60 16 99 06/24/24 18:42 Nasal Cannula 2.0 06/24/24 18:42 28 06/24/24 16:50 97.8 146/58 (87) 97.8 Total Intake and Output 06/23/24 06/23/24 06/24/24 15:00 23:00 07:00 Intake Total 250 ml 900 ml 400 ml Balance 250 ml 900 ml 400 ml medications Current Medications Medications Dose Ordered Sig/Matilda Route Start Time Stop Time Status Last Admin Dose Admin Albuterol 2.5 mg Q4HPRN PRN NEB 06/22/24 08:15 06/24/24 18:42 2.5 MG Ipratropium [place] 0.5 mg Q4HPRN PRN NEB 06/22/24 08:15 06/24/24 18:42 0.5 MG Levothyroxine Sodium 50 mcg QAM@0600 PO 06/23/24 06:00 06/24/24 05:53 50 MCG Sodium Chloride 10 ml Q8HR IV 06/22/24 14:00 06/24/24 14:00 10 ML Acetaminophen/ Hydrocodone Bitart 1 tab Q4HP PRN PO 06/22/24 08:15 Ondansetron HCl 4 mg Q4HP PRN IV 06/22/24 08:15 Docusate Sodium 100 mg BIDPRN PRN PO 06/22/24 08:15 Acetaminophen 650 mg Q6HP PRN PO 06/22/24 08:15 06/23/24 22:00 650 MG Nitroglycerin 0.4 mg Q5MINP PRN SL 06/22/24 09:15 Morphine Sulfate 2 mg Q30M PRN IV 06/22/24 09:15 Guaifenesin 200 mg Q4HP PRN PO 06/22/24 18:30 06/23/24 11:30 200 MG Azithromycin 250 ml @ 125 mls/hr DAILY IV 06/23/24 10:00 06/24/24 10:47 125 MLS/HR Oseltamivir Phosphate 75 mg Q12HR PO 06/23/24 10:45 06/28/24 10:44 06/24/24 10:57 75 MG Citalopram Hydrobromide 20 mg DAILY PO 06/24/24 10:00 06/24/24 10:57 20 MG Lorazepam 0.5 mg Q12HP PRN PO 06/23/24 12:45 06/23/24 14:00 0.5 MG Aspirin 81 mg DAILY PO 06/24/24 10:00 06/24/24 10:56 81 MG Enoxaparin Sodium 40 mg DAILY SC 06/24/24 10:00 06/24/24 10:53 40 MG Amlodipine Besylate 5 mg DAILY PO 06/24/24 10:00 06/24/24 11:10 5 MG Prednisone 40 mg DAILY PO 06/25/24 10:00 Pantoprazole Sodium 40 mg DAILY@0600 PO 06/25/24 06:00 Examination General Appearance: Alert, Oriented X3, Cooperative, in moderate respiratory distress. HEENT: Atraumatic, PERRLA, EOMI, Mucous membrane moist/pink Respiratory: Bilateral rhonchi Cardiovascular: Regular rate, Normal S1, Normal S2, No murmurs, no chest wall tenderness Abdominal: Normal bowel sounds, Soft, No tenderness, No hepatospenomegaly, No masses Extremities: No clubbing, No cyanosis, No edema, Normal pulses, No tenderness/swelling Skin: No rashes, No breakdown, No significant lesion Neuro: Normal gait, Normal speech, Strength at 5/5 X4 ext, Normal tone, Sensation intact, Cranial nerves 3-12 NL, Reflexes 2+ Psych/Mental Status: Mental status NL, Mood NL laboratory and microbiology Laboratory Tests 06/24/24 11:00 06/24/24 05:21 Test 06/24/24 05:21 Range/Units Serum Glucose 95 74-106 mg/dL Microbiology Date/Time Source Procedure Growth Status 06/23/24 08:40 Nose MRSA Screen - Final Complete Labs and/or images reviewed: Labs reviewed by me, Image(s) reviewed by me Problem List/Assessment/Plan Problem List/Assessment/Plan Acute on chronic hypoxic/hypercarbic respiratory failure likely due to COPD exacerbation/pneumonia Pneumonia, likely due to Gram-positive Gram-negative bacteria/viral COPD exacerbation Acute pneumonitis Lactic acidosis Sepsis, likely due to pneumonia Influenza type a positive Chest x-ray shows bilateral bronchovascular marking, with left upper lobe consolidation ABGs shows respiratory acidosis with metabolic compensation, raised lactic acid, and decreased WBC at 3.4 Check MRSA nares, blood/urine/sputum culture Empiric antibiotic ceftriaxone and azithromycin Injection with methylprednisolone 40 mg IV b.i.d. Nebulization Oxygen through nasal cannula Incentive spirometry Guaifenesin plain liquid 200 mg p.o. q.4 hours p.r.n. IV normal saline oseltamivir 75 mg b.i.d. Hypo thyroidism Continue levothyroxine 50 mEq daily Hypomagnesemia, repleted Hypokalemia, repleted Depression/anxiety Continue citalopram 20 mg daily Lorazepam 0.5 mg PO q.12 hours PRN DIET: Regular diet DVT PROPHYLAXIS: Lovenox GI PROPHYLAXIS:: Protonix BOWEL REGIMEN: Colace p.r.n. CODE STATUS: Goal of care discussed for more than 23 minutes, full code DISPOSITION: Med surge Patient's status discussed with the patient. Patient is feeling better since admission, but still complaining of shortness of breaths and required oxygen 2 L through nasal cannula. Case discussed with Dr. Lizama Plan discussed with: Other (RN) My Orders My Orders Orders - YAHAIRA BURGOS RESDIENT Procedure Category Date Status Time Amlodipine Tablet PHA 06/24/24 In Process (Norvasc Tablet) 10:00 Transfer Orders XFER 06/24/24 Transmitted 09:05 Pantoprazole Tablet PHA 06/25/24 In Process (Protonix Tablet) 06:00 Date of Service: Jun 24, 2024 Billing Provider: YASIR WHEAT MD Common Visit Codes: [id number] INP/OBS CARE(HIGH) YAHAIRA BURGOS RESDIENT Jun 24, 2024 19:15 YASIR WHEAT MD Jun 25, 2024 09:56
--- NOTE | 2024-06-24 22:36 | DVHPN2 ---
Progress Note - Dictate Date Seen: Jun 24, 2024 Has the PT tested + for MRSA If YES, has PT been informed?: No Medical Necessity Reason Pt with a Central, PICC or Fol: No Subjective Patient seen and examined at bedside. Remains on supplemental oxygen Overnight events reviewed. vital signs Vital Sign Date Time Temp Pulse Resp B/P (MAP) Pulse Ox O2 Delivery O2 Flow Rate FiO2 06/24/24 22:19 60 16 100 06/24/24 22:12 Nasal Cannula 2.0 06/24/24 22:12 28 06/24/24 21:00 98.1 114/53 (73) 98.1 Total Intake and Output 06/23/24 06/23/24 06/24/24 15:00 23:00 07:00 Intake Total 250 ml 900 ml 400 ml Balance 250 ml 900 ml 400 ml medications Current Medications Medications Dose Ordered Sig/Matilda Route Start Time Stop Time Status Last Admin Dose Admin Albuterol 2.5 mg Q4HPRN PRN NEB 06/22/24 08:15 06/24/24 22:12 2.5 MG Ipratropium [place] 0.5 mg Q4HPRN PRN NEB 06/22/24 08:15 06/24/24 22:12 0.5 MG Levothyroxine Sodium 50 mcg QAM@0600 PO 06/23/24 06:00 06/24/24 05:53 50 MCG Sodium Chloride 10 ml Q8HR IV 06/22/24 14:00 06/24/24 21:16 10 ML Acetaminophen/ Hydrocodone Bitart 1 tab Q4HP PRN PO 06/22/24 08:15 Ondansetron HCl 4 mg Q4HP PRN IV 06/22/24 08:15 Docusate Sodium 100 mg BIDPRN PRN PO 06/22/24 08:15 Acetaminophen 650 mg Q6HP PRN PO 06/22/24 08:15 06/23/24 22:00 650 MG Nitroglycerin 0.4 mg Q5MINP PRN SL 06/22/24 09:15 Morphine Sulfate 2 mg Q30M PRN IV 06/22/24 09:15 Guaifenesin 200 mg Q4HP PRN PO 06/22/24 18:30 06/23/24 11:30 200 MG Azithromycin 250 ml @ 125 mls/hr DAILY IV 06/23/24 10:00 06/24/24 10:47 125 MLS/HR Oseltamivir Phosphate 75 mg Q12HR PO 06/23/24 10:45 06/28/24 10:44 06/24/24 21:16 75 MG Citalopram Hydrobromide 20 mg DAILY PO 06/24/24 10:00 06/24/24 10:57 20 MG Lorazepam 0.5 mg Q12HP PRN PO 06/23/24 12:45 06/23/24 14:00 0.5 MG Aspirin 81 mg DAILY PO 06/24/24 10:00 06/24/24 10:56 81 MG Enoxaparin Sodium 40 mg DAILY SC 06/24/24 10:00 06/24/24 10:53 40 MG Amlodipine Besylate 5 mg DAILY PO 06/24/24 10:00 06/24/24 11:10 5 MG Prednisone 40 mg DAILY PO 06/25/24 10:00 Pantoprazole Sodium 40 mg DAILY@0600 PO 06/25/24 06:00 objective Gen.: Patient lying in bed in no apparent distress. On supplemental oxygen. Head: Normocephalic, atraumatic. Eyes: EOMI/PERRLA. Ears: Normal hearing. Normal anatomy. Neck/trachea: Trachea midline, supple. Nose: Normal external anatomy. Mouth: Moist mucous membranes. Chest: Decreased air entry bilaterally. No wheezing or rhonchi. Cardiovascular: Positive S1, positive S2. Regular rate and rhythm. Abdomen: Positive bowel sounds in all 4 quadrants. Soft, non-tender, non- distended. : Deferred. Rectal: Deferred. Skin: Warm, dry. Intact. Extremities: 2+ radial pulses bilaterally. No lower extremity edema. Neuro: Awake, alert, oriented x3. No gross motor or sensory deficits. Cranial nerves II through XII intact. Gait not assessed. laboratory and microbiology Laboratory Tests 06/24/24 19:53 06/24/24 05:21 Test 06/24/24 05:21 Range/Units Serum Glucose 95 74-106 mg/dL Assessment/Plan Impression: Acute hypoxic respiratory failure AE COPD Pulmonary edema Influenza Hx of nicotine dependence CARLOS Obesity, BMI 35.9 Events: Remains on supplemental oxygen, 2 LPM NC Taper O2 as tolerated Tamiflu course Continue bronchodilators Continue IV steroids - transition to prednisone 40 mg po QD x5 days Continue antibiotics Antitussive for cough Incentive spirometry Monitor renal function. Monitor electrolytes. Supplement as necessary. Mag supplementation Labs and imaging reviewed. Rest of plan as noted below. Plan: Supplemental oxygen Titrate to keep O2 sats above 92%. Tamiflu course Continue bronchodilators. Steroids Incentive spirometry Antitussive PRN cough. Monitor renal function. Monitor electrolytes. Supplement as necessary. Monitor ins and outs. Diet and lifestyle modifications for weight reduction Obesity - complicates all care DVT prophylaxis. Prognosis: Poor given patient's multiple co-morbidities. Rest of plan per hospitalist and other consultants. Thank you, Marvin Francis NP, for allowing me to participate in this patient's care. Further recommendations will depend on the patient's clinical course. Please do not hesitate to contact me if you have any questions or concerns. This medical document was created using an electronic medical record system with [employer] dictation system. Although these documentations are being carefully reviewed, there may still be some phonetic and typographical changes. The errors are purely typographical, due to imperfection on the software program, and do not reflect any compromise in the patient's medical care. Plan discussed with: Patient, Other (JUAN MANUEL Taveras) ANA HARDIN MD Jun 24, 2024 22:36
[2024-06-25] VITALS (19 sets, daily range): BP systolic 100–129; BP diastolic 50–98; PULSE 49–80; RESP 16–21; TEMP 97.7–98.5; O2SAT 90–100
[2024-06-25] MEDS: PANTOPRAZOLE 40 MG TAB PO SCH (05:28)
[2024-06-25 08:03] LABS: Alanine Aminotransferase 24 U/L (7-40); Albumin 3.3 g/dL (3.2-4.8); Alkaline Phosphatase 66 U/L (46-116); Anion Gap 5 (5-15); Aspartate Aminotransferase 30 U/L (13-40); BUN/Creatinine Ratio 14.1 (10.0-20.0); Calcium 8.8 mg/dL (8.7-10.4); Chloride 106 mmol/L (98-107); Glucose 90 mg/dL (74-106); Sodium 145 mmol/L (136-145)
[2024-06-25 08:07] LABS: Basophils # (auto) 0 10 ^3/uL (0-0.2); Basophils % (auto) 0.1 % (0.0-2.0); Eosinophils # (auto) 0.1 10 ^3/uL (0-0.8); Eosinophils % (auto) 1.2 % (0.0-7.0); Hematocrit 33.1 % (36.0-46.0); Hemoglobin 11.1 g/dL (12.2-16.2); Lymphocytes # (auto) 2.3 10 ^3/uL (0.4-5.4); Lymphocytes % (auto) 47.4 % (10.0-50.0); Mean Corpuscular Hemoglobin 28.6 pg (28.0-32.0); Mean Corpuscular Hgb Conc. 33.5 g/dL (32.0-36.0); Mean Corpuscular Volume 85.5 fL (80.0-100.0); Monocytes # (auto) 0.6 10 ^3/uL (0-1.3); Monocytes % (auto) 11.6 % (0.0-12.0); Neutrophils # (auto) 1.9 10 ^3/uL (1.6-8.6); Neutrophils % (auto) 39.7 % (37.0-80.0); Nucleated Red Blood Cells % 0.1 %; Platelet Count (auto) 263 10^3/uL (140-450); Red Blood Cells 3.87 10^6/uL (4.0-5.20); Red Cell Distribution Width 14.3 % (11.8-14.3); White Blood Cell 4.8 10^3/uL (4.4-10.8)
[2024-06-25 08:09] LABS: Bilirubin, Total 0.2 mg/dL (0.2-1.0); Blood Urea Nitrogen 9 mg/dL (9-23); Carbon Dioxide 34 mmol/L (20-31); Potassium 3.2 mmol/L (3.5-5.1); Total Protein 5.3 g/dL (5.7-8.2)
[2024-06-25] MEDS: POTASSIUM EFFERVESENT TAB 25 MEQ PO ONE (09:21)
[2024-06-25] MEDS: POTASSIUM CHL 20 Meq TABLET PO ONE ×2 (10:13→11:30)
[2024-06-25] MEDS: FUROSEMIDE 20 MG/2 ML VIAL IV ONE (10:20)
[2024-06-25] MEDS: predniSONE 20 MG TAB PO SCH (10:29)
[2024-06-25] MEDS ORDERED: POTASSIUM EFFERVESENT TAB 25 MEQ PO ONE (11:30)
[2024-06-25] MEDS: IPRATROPIUM BROM 0.5 MG/2.5ML INH SOL NEB SCH (13:24)
[2024-06-25] MEDS: ALBUTEROL SULF 2.5 MG/0.5ML(0.5%) NEB SOLN NEB SCH (13:25)
[2024-06-25] MEDS ORDERED: ALBUTEROL SULF 2.5 MG/0.5ML(0.5%) NEB SOLN NEB PRN (13:30)
[2024-06-25] MEDS ORDERED: IPRATROPIUM BROM 0.5 MG/2.5ML INH SOL NEB PRN (13:30)
--- NOTE | 2024-06-25 15:35 | DVHPNRES ---
Progress Note Date Seen: Jun 25, 2024 Resident Creating Document: YAHAIRA BURGOS GOSIA Has the PT tested + for MRSA If YES, has PT been informed?: No Medical Necessity Reason Pt with a Central, PICC or Fol: No Subjective Review of Systems Patient is a 73-year-old female with a past medical history of thyroid disease, HLD, and COPD, who presented to [facility] ED with a complaint of shortness of breath for 1 week. The patient reports that her symptoms have progressively worsened, with weakness, dry mouth, loss of taste, and shortness of breath when ambulating, on exertion, and at rest, which has prompted this visit. PMHx: Sleep apnea, COPD, hyperlipidemia, hypothyroidism, PSHx: Noncontributory Family history: Noncontributory Social history: Patient lives in [place] with the family[facility], ex-smoker, denies drinking or any other drug use Home medication: Omeprazole, citalopram, aspirin 81 mg Allergic history: Penicillin Today, patient seen and examined at the bedside. Patient is still better since admission, but still complained of shortness of breath. Patient reports: No new complaints Changes from previous H/P or p: No Changes Objective vital signs Vital Sign Date Time Temp Pulse Resp B/P (MAP) Pulse Ox O2 Delivery O2 Flow Rate FiO2 06/25/24 13:34 61 16 100 06/25/24 13:25 Nasal Cannula 2.0 06/25/24 13:25 28 06/25/24 10:30 100/50 06/25/24 09:00 98.5 98.5 Total Intake and Output 06/24/24 06/24/24 06/25/24 15:00 23:00 07:00 Intake Total 250 ml 800 ml 120 ml Balance 250 ml 800 ml 120 ml medications Current Medications Medications Dose Ordered Sig/Matilda Route Start Time Stop Time Status Last Admin Dose Admin Levothyroxine Sodium 50 mcg QAM@0600 PO 06/23/24 06:00 06/25/24 05:28 50 MCG Sodium Chloride 10 ml Q8HR IV 06/22/24 14:00 06/25/24 05:28 10 ML Acetaminophen/ Hydrocodone Bitart 1 tab Q4HP PRN PO 06/22/24 08:15 Ondansetron HCl 4 mg Q4HP PRN IV 06/22/24 08:15 Docusate Sodium 100 mg BIDPRN PRN PO 06/22/24 08:15 Acetaminophen 650 mg Q6HP PRN PO 06/22/24 08:15 06/23/24 22:00 650 MG Nitroglycerin 0.4 mg Q5MINP PRN SL 06/22/24 09:15 Morphine Sulfate 2 mg Q30M PRN IV 06/22/24 09:15 Guaifenesin 200 mg Q4HP PRN PO 06/22/24 18:30 06/23/24 11:30 200 MG Azithromycin 250 ml @ 125 mls/hr DAILY IV 06/23/24 10:00 06/25/24 10:11 125 MLS/HR Oseltamivir Phosphate 75 mg Q12HR PO 06/23/24 10:45 06/28/24 10:44 06/25/24 10:29 75 MG Citalopram Hydrobromide 20 mg DAILY PO 06/24/24 10:00 06/25/24 10:29 20 MG Lorazepam 0.5 mg Q12HP PRN PO 06/23/24 12:45 06/23/24 14:00 0.5 MG Aspirin 81 mg DAILY PO 06/24/24 10:00 06/25/24 10:29 81 MG Enoxaparin Sodium 40 mg DAILY SC 06/24/24 10:00 06/25/24 10:28 40 MG Amlodipine Besylate 5 mg DAILY PO 06/24/24 10:00 06/25/24 10:30 5 MG Prednisone 40 mg DAILY PO 06/25/24 10:00 06/25/24 10:29 40 MG Pantoprazole Sodium 40 mg DAILY@0600 PO 06/25/24 06:00 06/25/24 05:28 40 MG Albuterol 2.5 mg Q4HR NEB 06/25/24 14:00 06/25/24 13:25 2.5 MG Ipratropium [place] 0.5 mg Q4HR NEB 06/25/24 14:00 06/25/24 13:25 0.5 MG Examination General Appearance: Alert, Oriented X3, Cooperative, in moderate respiratory distress. HEENT: Atraumatic, PERRLA, EOMI, Mucous membrane moist/pink Respiratory: Bilateral rhonchi Cardiovascular: Regular rate, Normal S1, Normal S2, No murmurs, no chest wall tenderness Abdominal: Normal bowel sounds, Soft, No tenderness, No hepatospenomegaly, No masses Extremities: No clubbing, No cyanosis, No edema, Normal pulses, No tenderness/swelling Skin: No rashes, No breakdown, No significant lesion Neuro: Normal gait, Normal speech, Strength at 5/5 X4 ext, Normal tone, Sensation intact, Cranial nerves 3-12 NL, Reflexes 2+ Psych/Mental Status: Mental status NL, Mood NL laboratory and microbiology Laboratory Tests 06/25/24 07:16 Test 06/25/24 07:16 Range/Units Serum Glucose 90 74-106 mg/dL Microbiology Date/Time Source Procedure Growth Status 06/23/24 08:40 Nose MRSA Screen - Final Complete Labs and/or images reviewed: Labs reviewed by me, Image(s) reviewed by me Problem List/Assessment/Plan Problem List/Assessment/Plan Acute on chronic hypoxic/hypercarbic respiratory failure likely due to COPD exacerbation/pneumonia Pneumonia, likely due to Gram-positive Gram-negative bacteria/viral COPD exacerbation Acute pneumonitis Lactic acidosis Sepsis, likely due to pneumonia Influenza type a positive Chest x-ray shows bilateral bronchovascular marking, with left upper lobe consolidation ABGs shows respiratory acidosis with metabolic compensation, raised lactic acid, and decreased WBC at 3.4 Check MRSA nares, blood/urine/sputum culture Empiric antibiotic ceftriaxone and azithromycin Injection with methylprednisolone 40 mg IV b.i.d. Nebulization Oxygen through nasal cannula Incentive spirometry Guaifenesin plain liquid 200 mg p.o. q.4 hours p.r.n. oseltamivir 75 mg b.i.d. Injection Lasix 20 mg Physical therapy Hypo thyroidism Continue levothyroxine 50 mEq daily Hypomagnesemia, repleted Hypokalemia, repleted Depression/anxiety Continue citalopram 20 mg daily Lorazepam 0.5 mg PO q.12 hours PRN DIET: Regular diet DVT PROPHYLAXIS: Lovenox GI PROPHYLAXIS:: Protonix BOWEL REGIMEN: Colace p.r.n. CODE STATUS: Goal of care discussed for more than 23 minutes, full code DISPOSITION: Med surge Patient's status discussed with the patient. Patient is feeling better since admission, but still complaining of shortness of breaths and and using accessory respiratory muscles. Case discussed with Dr. Lizama Plan discussed with: Patient My Orders My Orders Orders - YAHAIRA BURGOS RESDIENT Procedure Category Date Status Time Pantoprazole Tablet PHA 06/25/24 In Process (Protonix Tablet) 06:00 Pt Request For Service PT 06/25/24 Logged 09:19 Incentive Spirometry ORDERS 06/25/24 Transmitted Q 1hr 09:19 Albuterol Medneb PHA 06/25/24 In Process (Ventolin Medneb) 14:00 Ipratropium Medneb PHA 06/25/24 In Process (Atrovent Medneb) 14:00 Dietary Evaluation Review Comments: Recommend a weight reducing diet, monitor PO intake to meet 75% of her needs Expected Outcomes/Goals: gradual wt loss, improved nutrition related lab values Date of Service: Jun 25, 2024 Billing Provider: YASIR WHEAT MD Common Visit Codes: [id number] INP/OBS CARE(HIGH) YAHAIRA BURGOS RESDIENT Jun 25, 2024 15:35 YASIR WHEAT MD Jun 30, 2024 09:05
[2024-06-25] MEDS: HYDROcodone-ACET 5/325MG TAB PO PRN (22:19)
--- NOTE | 2024-06-25 23:12 | DVHPN2 ---
Progress Note - Dictate Date Seen: Jun 25, 2024 Has the PT tested + for MRSA If YES, has PT been informed?: No Medical Necessity Reason Pt with a Central, PICC or Fol: No Subjective Patient seen and examined at bedside. On room air Overnight events reviewed. vital signs Vital Sign Date Time Temp Pulse Resp B/P (MAP) Pulse Ox O2 Delivery O2 Flow Rate FiO2 06/25/24 22:20 98.0 77 18 108/64 (79) 92 98.0 06/25/24 18:05 Room Air* 0 N/A Nasal Cannula* Total Intake and Output 06/24/24 06/24/24 06/25/24 15:00 23:00 07:00 Intake Total 250 ml 800 ml 120 ml Balance 250 ml 800 ml 120 ml medications Current Medications Medications Dose Ordered Sig/Matilda Route Start Time Stop Time Status Last Admin Dose Admin Levothyroxine Sodium 50 mcg QAM@0600 PO 06/23/24 06:00 06/25/24 05:28 50 MCG Sodium Chloride 10 ml Q8HR IV 06/22/24 14:00 06/25/24 14:00 10 ML Acetaminophen/ Hydrocodone Bitart 1 tab Q4HP PRN PO 06/22/24 08:15 06/25/24 22:19 1 TAB Ondansetron HCl 4 mg Q4HP PRN IV 06/22/24 08:15 Docusate Sodium 100 mg BIDPRN PRN PO 06/22/24 08:15 Acetaminophen 650 mg Q6HP PRN PO 06/22/24 08:15 06/23/24 22:00 650 MG Nitroglycerin 0.4 mg Q5MINP PRN SL 06/22/24 09:15 Morphine Sulfate 2 mg Q30M PRN IV 06/22/24 09:15 Guaifenesin 200 mg Q4HP PRN PO 06/22/24 18:30 06/23/24 11:30 200 MG Azithromycin 250 ml @ 125 mls/hr DAILY IV 06/23/24 10:00 06/25/24 10:11 125 MLS/HR Oseltamivir Phosphate 75 mg Q12HR PO 06/23/24 10:45 06/28/24 10:44 06/25/24 22:16 75 MG Citalopram Hydrobromide 20 mg DAILY PO 06/24/24 10:00 06/25/24 10:29 20 MG Lorazepam 0.5 mg Q12HP PRN PO 06/23/24 12:45 06/23/24 14:00 0.5 MG Aspirin 81 mg DAILY PO 06/24/24 10:00 06/25/24 10:29 81 MG Enoxaparin Sodium 40 mg DAILY SC 06/24/24 10:00 06/25/24 10:28 40 MG Amlodipine Besylate 5 mg DAILY PO 06/24/24 10:00 06/25/24 10:30 5 MG Prednisone 40 mg DAILY PO 06/25/24 10:00 06/25/24 10:29 40 MG Pantoprazole Sodium 40 mg DAILY@0600 PO 06/25/24 06:00 06/25/24 05:28 40 MG Albuterol 2.5 mg Q4HR NEB 06/25/24 14:00 06/25/24 21:58 2.5 MG Ipratropium [place] 0.5 mg Q4HR NEB 06/25/24 14:00 06/25/24 21:57 0.5 MG objective Gen.: Patient lying in bed in no apparent distress. On room air Head: Normocephalic, atraumatic. Eyes: EOMI/PERRLA. Ears: Normal hearing. Normal anatomy. Neck/trachea: Trachea midline, supple. Nose: Normal external anatomy. Mouth: Moist mucous membranes. Chest: Decreased air entry bilaterally. No wheezing or rhonchi. Cardiovascular: Positive S1, positive S2. Regular rate and rhythm. Abdomen: Positive bowel sounds in all 4 quadrants. Soft, non-tender, non- distended. : Deferred. Rectal: Deferred. Skin: Warm, dry. Intact. Extremities: 2+ radial pulses bilaterally. No lower extremity edema. Neuro: Awake, alert, oriented x3. No gross motor or sensory deficits. Cranial nerves II through XII intact. Gait not assessed. laboratory and microbiology Laboratory Tests 06/25/24 07:16 Test 06/25/24 07:16 Range/Units Serum Glucose 90 74-106 mg/dL Assessment/Plan Impression: Acute hypoxic respiratory failure AE COPD Pulmonary edema Influenza Hx of nicotine dependence CARLOS Obesity, BMI 35.9 Events: Breathing on room air No respiratory distress. Supplemental oxygen PRN Patient refused BiPAP Tamiflu course for influenza Continue bronchodilators Continue steroids - transitioned to prednisone 40 mg po QD x5 days Continue antibiotics Antitussive for cough Incentive spirometry Monitor renal function. Monitor electrolytes. Supplement as necessary. Patient is stable for discharge from the pulmonary standpoint. Labs and imaging reviewed. Rest of plan as noted below. Plan: Supplemental oxygen PRN Titrate to keep O2 sats above 92%. Tamiflu course Continue bronchodilators. Steroids Incentive spirometry Antitussive PRN cough. Monitor renal function. Monitor electrolytes. Supplement as necessary. Monitor ins and outs. Diet and lifestyle modifications for weight reduction Obesity - complicates all care DVT prophylaxis. Prognosis: Poor given patient's multiple co-morbidities. Rest of plan per hospitalist and other consultants. Thank you, Marvin Francis NP, for allowing me to participate in this patient's care. Further recommendations will depend on the patient's clinical course. Please do not hesitate to contact me if you have any questions or concerns. This medical document was created using an electronic medical record system with [employer] dictation system. Although these documentations are being carefully reviewed, there may still be some phonetic and typographical changes. The errors are purely typographical, due to imperfection on the software program, and do not reflect any compromise in the patient's medical care. Dietary Evaluation Review Comments: Recommend a weight reducing diet, monitor PO intake to meet 75% of her needs Expected Outcomes/Goals: gradual wt loss, improved nutrition related lab values Plan discussed with: Patient, Other (JUAN MANUEL Taveras) ANA HARDIN MD Jun 25, 2024 23:12
[2024-06-26] VITALS (14 sets, daily range): BP systolic 107–133; BP diastolic 46–68; PULSE 60–77; RESP 16–26; TEMP 98.1–98.6; O2SAT 90–100
[2024-06-26 06:16] LABS: Basophils # (auto) 0 10 ^3/uL (0-0.2); Basophils % (auto) 0.1 % (0.0-2.0); Eosinophils # (auto) 0 10 ^3/uL (0-0.8); Eosinophils % (auto) 0.7 % (0.0-7.0); Hematocrit 34.1 % (36.0-46.0); Hemoglobin 11.5 g/dL (12.2-16.2); Lymphocytes # (auto) 2.7 10 ^3/uL (0.4-5.4); Mean Corpuscular Hemoglobin 28.6 pg (28.0-32.0); Mean Corpuscular Hgb Conc. 33.8 g/dL (32.0-36.0); Mean Corpuscular Volume 84.8 fL (80.0-100.0); Monocytes # (auto) 0.8 10 ^3/uL (0-1.3); Monocytes % (auto) 11.5 % (0.0-12.0); Neutrophils # (auto) 3.3 10 ^3/uL (1.6-8.6); Neutrophils % (auto) 47.7 % (37.0-80.0); Nucleated Red Blood Cells % 0.1 %; Platelet Count (auto) 274 10^3/uL (140-450); Red Blood Cells 4.02 10^6/uL (4.0-5.20); Red Cell Distribution Width 14.5 % (11.8-14.3); White Blood Cell 6.8 10^3/uL (4.4-10.8)
[2024-06-26 06:26] LABS: Alanine Aminotransferase 25 U/L (7-40); Albumin 3.5 g/dL (3.2-4.8); Alkaline Phosphatase 69 U/L (46-116); Anion Gap 7 (5-15); Aspartate Aminotransferase 27 U/L (13-40); BUN/Creatinine Ratio 13.4 (10.0-20.0); Calcium 9.1 mg/dL (8.7-10.4); Chloride 103 mmol/L (98-107); Glucose 98 mg/dL (74-106); Sodium 143 mmol/L (136-145)
[2024-06-26 06:29] LABS: Bilirubin, Total 0.3 mg/dL (0.2-1.0); Blood Urea Nitrogen 9 mg/dL (9-23); Carbon Dioxide 33 mmol/L (20-31); Potassium 2.9 mmol/L (3.5-5.1)
[2024-06-26] MEDS: MAGNESIUM SULFATE 1GM/100ML 100 ML IV SCH (08:34)
[2024-06-26] MEDS: POTASSIUM EFFERVESENT TAB 25 MEQ PO ONE (08:42)
[2024-06-26] MEDS ORDERED: cefTRIAXone 1GM/50ML D5W 50 ML IV SCH (09:00)
[2024-06-26] MEDS: POTASSIUM CHLORIDE 40 MEQ, LIDOCAINE 1% (LOCAL ANESTH.) 4 ML in SODIUM CHL 0.9% 250 ML IV ONE (10:31)
[2024-06-26] MEDS ORDERED: POTASSIUM CHLORIDE 60 MEQ, LIDOCAINE 1% (LOCAL ANESTH.) 6 ML in SODIUM CHL 0.9% 500 ML IV ONE (11:10)
[2024-06-26] MEDS ORDERED: SODIUM CHL 0.9% IV ONE (11:15)
[2024-06-26] MEDS ORDERED: POTASSIUM CHLORIDE IV ONE (11:15)
[2024-06-26] MEDS ORDERED: LIDOCAINE 1% IV ONE (11:15)
[2024-06-26] MEDS ORDERED: DOXY1CAP57 PO (11:48)
[2024-06-26] MEDS ORDERED: PRED20TA2 PO (11:48)
[2024-06-26] MEDS: AZITHROMYCIN 250 MG TAB PO SCH (12:49)
[2024-06-26] MEDS: POTASSIUM CHLORIDE 60 MEQ, LIDOCAINE 1% (LOCAL ANESTH.) 6 ML in SODIUM CHL 0.9% 500 ML IV ONE (13:14)
--- NOTE | 2024-06-26 15:17 | DVHDSRES ---
Discharge Summary Date of Admission Resident Creating Document: YAHAIRA BURGOS RESDIENT Jun 22, 2024 at 09:15 Date of Discharge: Jun 26, 2024 Admitting Diagnosis Acute respiratory failure with hypoxia Wounds: Labs/Diagnostic Data: Laboratory Results Test 06/26/24 05:14 06/25/24 07:16 06/23/24 21:20 06/23/24 00:00 White Blood Count 6.8 10^3/uL (4.4-10.8) Red Blood Count 4.02 10^6/uL (4.0-5.20) Hemoglobin 11.5 g/dL (12.2-16.2) Hematocrit 34.1 % (36.0-46.0) Mean Corpuscular Volume 84.8 fL (80.0-100.0) Mean Corpuscular Hemoglobin 28.6 pg (28.0-32.0) Mean Corpuscular Hemoglobin Concent 33.8 g/dL (32.0-36.0) Red Cell Distribution Width 14.5 % (11.8-14.3) Platelet Count 274 10^3/uL (140-450) Mean Platelet Volume 7.5 fL (6.9-10.8) Neutrophils (%) (Auto) 47.7 % (37.0-80.0) Lymphocytes (%) (Auto) 40.0 % (10.0-50.0) Monocytes (%) (Auto) 11.5 % (0.0-12.0) Eosinophils (%) (Auto) 0.7 % (0.0-7.0) Basophils (%) (Auto) 0.1 % (0.0-2.0) Neutrophils # (Auto) 3.3 10 ^3/uL (1.6-8.6) Lymphocytes # (Auto) 2.7 10 ^3/uL (0.4-5.4) Monocytes # (Auto) 0.8 10 ^3/uL (0-1.3) Eosinophils # (Auto) 0 10 ^3/uL (0-0.8) Basophils # (Auto) 0 10 ^3/uL (0-0.2) Nucleated Red Blood Cells 0.1 % Sodium Level 143 mmol/L (136-145) Potassium Level 2.9 mmol/L (3.5-5.1) Chloride Level 103 mmol/L (98-107) Carbon Dioxide Level 33 mmol/L (20-31) Anion Gap 7 (5-15) Blood Urea Nitrogen 9 mg/dL (9-23) Creatinine 0.67 mg/dL (0.550-1.02) Glomerular Filtration Rate Calc 93 mL/min (>90) BUN/Creatinine Ratio 13.4 (10.0-20.0) Serum Glucose 98 mg/dL (74-106) Calcium Level 9.1 mg/dL (8.7-10.4) Total Bilirubin 0.3 mg/dL (0.2-1.0) Aspartate Amino Transferase (AST) 27 U/L (13-40) Alanine Aminotransferase (ALT) 25 U/L (7-40) Alkaline Phosphatase 69 U/L (46-116) Total Protein 6.0 g/dL (5.7-8.2) Albumin 3.5 g/dL (3.2-4.8) Magnesium Level 1.7 mg/dL (1.6-2.6) Lactic Acid Level 2.0 mmol/L (0.4-2.0) SARS-CoV-2 Antigen (Rapid) Negative (NEGATIVE) Test 06/22/24 08:18 06/22/24 05:55 06/22/24 05:50 06/22/24 04:50 Blood Gas Specimen Type Arterial Blood Gas Sample Site Right brachial Blood Gas Patient Temperature 37.0 Arterial Blood Date Drawn [id number] Arterial Blood pH 7.416 (7.350-7.450) Arterial Blood Partial Pressure CO2 51.5 mmHg (32.0-45.0) Arterial Blood Partial Pressure O2 75.8 mmHg (83.0-108.0) Arterial Blood HCO3 32.4 mmol/L (21.0-28.0) Arterial Blood Oxygen Saturation 93.7 % (94.0-98.0) Arterial Blood Base Excess 6.6 mmol/L (-2.0-3.0) Arterial Blood Oxyhemoglobin 92.9 % (94.0-98.0) Arterial Blood Carboxyhemoglobin 0.3 % (0.5-1.5) Arterial Blood Methemoglobin 0.6 % (0.0-1.5) Aldo Test N/a Blood Gas Total Hemoglobin 12.20 g/dL (12.0-16.0) Blood Gas Set Respiration Rate 12.0 Blood Gas Modality Mask - bipap Blood Gas Spontaneous Rate 24 FiO2 % 30.0 Blood Gas Spontaneous Tidal Volume 450 Blood Gas EPAP 5 Blood Gas IPAP 12 Venous Blood pH 7.157 (7.320-7.430) Venous Blood pCO2 at Patient Temp 89.2 mmHg (38.0-54.0) Venous Blood pO2 at Patient Temp < 36.5 mmHg (23.0-48.0) Venous Blood HCO3 30.9 mmol/L (22.0-29.0) Venous Blood Base Excess -0.8 mmol/L (-2.0-3.0) Blood Gas Liter Flow 2.00 Blood Gas Critical Value Read Back Yes Blood Gas Notified Whom eduardo Mendez md Blood Gas Notified Time [id number] Blood Gas Notified By Kit larson rrt Troponin I High Sensitivity 31 ng/L (</=34) Influenza Type A Antigen Positive (Negative) Influenza Type B Antigen Negative (Negative) Test 06/22/24 04:49 B-Type Natriuretic Peptide 46.49 pg/mL (0-100) Other Laboratory Tests 06/26/24 05:14 Brief Hx & Hospital Course: A 73-year-old female with a history of thyroid disease, hyperlipidemia (HLD), and COPD presented to [facility] ED with shortness of breath for one week. Her symptoms have progressively worsened, including weakness, dry mouth, loss of taste, and shortness of breath during ambulation, exertion, and at rest. Her past medical history includes sleep apnea, COPD, hyperlipidemia, and hypothyroidism. She has no significant past surgical or family history. Socially, she lives in [place] with her family, is an ex-smoker, and denies alcohol or drug use. Her home medications are omeprazole, citalopram, and aspirin 81 mg. She is allergic to penicillin. Hospital course: Chest x-ray shows bilateral bronchovascular marking, with left upper lobe consolidation. ABGs shows respiratory acidosis with metabolic compensation, raised lactic acid, and decreased WBC at 3.4. The patient was put on the line of acute on chronic hypoxic/hypercarbic respiratory failure likely due to COPD exacerbation/pneumonia. The patient was given empiric antibiotics of ceftriaxone, azithromycin, injection methylprednisolone 40 mg IV b.i.d., nebulized with albuterol and ipratropium, given oxygen through nasal cannula, given oseltamivir 75 mg b.i.d. for the influenza, and continued incentive spirometry through the hospital admission. For the possible heart failure exacerbation patient was given injection Lasix. Home medication for the hypothyroidism, and depression were continued during hospital admission. Electrolyte imbalance including hypokalemia and hypomagnesemia were repleted. MRSA nares screen came negative. On 06/26, the patient was feeling better since admission. Patient was clinically and hemodynamically stable. Patient was able to maintain saturation on room air and had no respiratory distress. Discharge plan discussed with the patient and the patient was discharged. Discharge plan: Follow up with the PCP within 1 week of the discharge. Follow up with the pulmonology on outpatient basis. Follow up with the Cardiology on outpatient basis. Tablet doxycycline 100 mg b.i.d. for 3 days and examined tablet prednisone 40 mg daily for 3 more days Continue home meds Operations or Procedures [place] [address] Ph: [phone] DIAGNOSTIC IMAGING Diagnostic Imaging Report : [id number] Signed PATIENT: NATASHA MORGAN ACCT: [id number] UNIT: [id number] : 1950 LOC: ER ROOM / BED: / AGE / SEX: 73 / F ADM STATUS: REG ER SERVICE 2 ORDERING PHYSICIAN: BRO MENDEZ MD PROCEDURE(s): CXRP - CHEST PORTABLE REASON: SOB ORDER NUMBER(s): [id number], ACCESSION NUMBER(s): [id number] CHEST RADIOGRAPH Indication: SOB Technique: Single frontal view of the chest was obtained Comparison: None FINDINGS: Lines and Tubes: None Lungs: No focal consolidation. Pleura: No effusion. No pneumothorax. Cardiomediastinal contours: Unremarkable Bones: No acute osseous abnormality. IMPRESSION: 1. No acute cardiopulmonary disease. ATED BY: CRISSY GREEN MD DICTATED DATE/TIME: 06/22/24608 SIGNED BY: CRISSY GREEN MD SIGNED DATE/TIME: 06/22/24608 CC: Condition at Discharge: Good Final Diagnosis/Problems List Acute on chronic hypoxic/hypercarbic respiratory failure likely due to COPD exacerbation/pneumonia Pneumonia, likely due to Gram-positive Gram-negative bacteria/viral COPD exacerbation Acute pneumonitis Lactic acidosis Sepsis, likely due to pneumonia Influenza type a positive Hypo thyroidism Hypomagnesemia, repleted Hypokalemia, repleted Depression/anxiety Mild anemia Possible acute on chronic diastolic heart failure with pulmonary edema Obesity, BMI 30.4 History of nicotine dependence Obstructive sleep apnea Discharge Disposition: Home Discharge Instruct/Medications Diet: Cardiac 2g Na,low cholest Activity: No Restrictions, As Tolerated Follow Up/Referral: Follow up with the PCP within 1 week after discharge. Follow up with the pulmonology upon outpatient basis. Medications: Capsule doxycycline 100 mg b.i.d. for 3 days Tablet prednisone 40 mg daily for 3 days Continue home meds Discharge Statement: "Patient was advised to return to the ER or call 911 if any headaches, dizziness, shortness of breath, chest pain, abdominal pain, bleeding, fevers, or worsening of medical condition. Patient was counseled about treatment plan, medications, possible side effects, patientverbalized understanding. All questions were answered to the best of my ability. This discharge took greater then 30 minutes in planning, reviewing documentation, counseling the patient, and discussing with other team members." ASSESSMENT ASSESSMENT Assessment Date of Service: Jun 26, 2024 Billing Provider: YASIR WHEAT MD Common Visit Codes: 61793-MVT/OBS DISCH DAY >30min YAHAIRA BURGOS RESDIENT Jun 26, 2024 15:17 YASIR WHEAT MD Jul 01, 2024 09:34
--- NOTE | 2024-06-26 23:34 | DVHPN2 ---
Progress Note - Dictate Date Seen: Jun 26, 2024 Has the PT tested + for MRSA If YES, has PT been informed?: No Medical Necessity Reason Pt with a Central, PICC or Fol: No Subjective Patient seen and examined at bedside. On room air Overnight events reviewed. vital signs Vital Sign Date Time Temp Pulse Resp B/P (MAP) Pulse Ox O2 Delivery O2 Flow Rate FiO2 06/26/24 18:15 66 20 99 06/26/24 18:06 Room Air* 0 21 06/26/24 16:30 98.3 119/46 (70) 98.3 Total Intake and Output 06/25/24 06/25/24 06/26/24 15:00 23:00 07:00 Intake Total 250 ml 1350 ml 400 ml Output Total 2 ml Balance 250 ml 1348 ml 400 ml objective Gen.: Patient lying in bed in no apparent distress. On room air Head: Normocephalic, atraumatic. Eyes: EOMI/PERRLA. Ears: Normal hearing. Normal anatomy. Neck/trachea: Trachea midline, supple. Nose: Normal external anatomy. Mouth: Moist mucous membranes. Chest: Decreased air entry bilaterally. No wheezing or rhonchi. Cardiovascular: Positive S1, positive S2. Regular rate and rhythm. Abdomen: Positive bowel sounds in all 4 quadrants. Soft, non-tender, non- distended. : Deferred. Rectal: Deferred. Skin: Warm, dry. Intact. Extremities: 2+ radial pulses bilaterally. No lower extremity edema. Neuro: Awake, alert, oriented x3. No gross motor or sensory deficits. Cranial nerves II through XII intact. Gait not assessed. laboratory and microbiology Laboratory Tests 06/26/24 05:14 Test 06/26/24 05:14 Range/Units Serum Glucose 98 74-106 mg/dL Assessment/Plan Impression: Acute hypoxic respiratory failure AE COPD Pulmonary edema Influenza Hx of nicotine dependence CARLOS Obesity, BMI 35.9 Events: Breathing on room air Tamiflu course for influenza Continue bronchodilators Prednisone 40 mg po QD x5 days Continue antibiotics Antitussive for cough Incentive spirometry Monitor renal function. Monitor electrolytes. Supplement as necessary. Patient is stable for discharge from the pulmonary standpoint. Recommend outpatient follow up for pulmonary function testing. Labs and imaging reviewed. Rest of plan as noted below. Plan: Supplemental oxygen PRN Titrate to keep O2 sats above 92%. Tamiflu course Continue bronchodilators. Steroids Incentive spirometry Antitussive PRN cough. Monitor renal function. Monitor electrolytes. Supplement as necessary. Monitor ins and outs. Diet and lifestyle modifications for weight reduction Obesity - complicates all care DVT prophylaxis. Prognosis: Poor given patient's multiple co-morbidities. Rest of plan per hospitalist and other consultants. Thank you, Marvin Francis NP, for allowing me to participate in this patient's care. Further recommendations will depend on the patient's clinical course. Please do not hesitate to contact me if you have any questions or concerns. This medical document was created using an electronic medical record system with [employer] dictation system. Although these documentations are being carefully reviewed, there may still be some phonetic and typographical changes. The errors are purely typographical, due to imperfection on the software program, and do not reflect any compromise in the patient's medical care. Dietary Evaluation Review Comments: Recommend a weight reducing diet, monitor PO intake to meet 75% of her needs Expected Outcomes/Goals: gradual wt loss, improved nutrition related lab values Plan discussed with: Patient, Other (JUAN MANUEL Taveras MD) ANA HARDIN MD Jun 26, 2024 23:34
== END 2024-06-26 19:50 | disposition home or self-care (01) | DRG 871 ==
LOC: EDBD 04:05 → ER 04:05 → TELE 09:15 → TELE-CENTR 09:16 → CENTRAL 06-23 12:55 → TELE-CENTR 06-24 09:06
PROVIDERS: ADMIT Student in an Organized Health Care Education/Training Program; ATTEND Student in an Organized Health Care Education/Training Program
PROC: 5A09357 Assistance with Respiratory Ventilation, Less than 24 Consecutive Hours, Continuous Positive Airway Pressure (ICD-10-PCS; principal; 2024-06-22)
DX: A41.59 Other Gram-negative sepsis (principal); I50.33 Acute on chronic diastolic (congestive) heart failure; J15.69 Pneumonia due to other Gram-negative bacteria; J15.9 Unspecified bacterial pneumonia; J12.9 Viral pneumonia, unspecified; J96.22 Acute and chronic respiratory failure with hypercapnia; J96.21 Acute and chronic respiratory failure with hypoxia; J44.1 Chronic obstructive pulmonary disease with (acute) exacerbation; J81.1 Chronic pulmonary edema; E87.29 Other acidosis; J44.0 Chronic obstructive pulmonary disease with (acute) lower respiratory infection; J11.1 Influenza due to unidentified influenza virus with other respiratory manifestations; G47.33 Obstructive sleep apnea (adult) (pediatric); E66.9 Obesity, unspecified; E78.5 Hyperlipidemia, unspecified; F32.A Depression, unspecified; F41.9 Anxiety disorder, unspecified; E83.42 Hypomagnesemia; E87.6 Hypokalemia; J98.4 Other disorders of lung; Z88.0 Allergy status to penicillin; Z87.891 Personal history of nicotine dependence; Z79.899 Other long term (current) drug therapy; Z68.30 Body mass index [BMI] 30.0-30.9, adult; D64.9 Anemia, unspecified
CPT/HCPCS: 36415; 36600; 71045; 80053; 82805; 83605; 83735; 83880; 84132; 84484; 85025; 87081; 87426; 87804; 93005; 94640; 94660; 97163; G0378; J2003; J2405; J3480; J3490

== ENCOUNTER 2024-06-27 20:05 | Emergency (ER) | payer OTHER ==
[~2024-06-27] VITALS: Ht 167.6 cm; Wt 100.0 kg
[~2024-06-27 20:05] MED LIST: ASPI-543 PO; CITA-77 PO; DOXY1CAP57 PO; FURO20TA3 PO; OME20GT GT; OMEP20TA PO; PERCOT PO; PRED20TA2 PO
--- NOTE | 2024-06-27 20:43 | ED.PDOC ---
History of Present Illness HPI Comments 73 y/o F, with a Hx of asthma, CHF, COPD, HTN, and obesity, is BIBA for c/o shortness of breath, wheezing, and productive cough, today. Per EMS report, patient endorses on unprovoked and sudden onset of symptoms 30x minutes prior to ED arrival. Patient was commented to have been discharge from [facility], yesterday, for hospital admission for similar complaints that began around . On scene, patient was found on scene wheezing bilaterally and a SpO2 of 94%RA. En route, patient was given 2x Albuterol and 1x Atrovent breathign Tx, with minimal relief. Patient denies having any chest pain, palpitations, dizziness, lightheadedness, or other associated symptoms or modifiers at this time. Time Seen by MD: 20:00 Reviewed Notes: Nurses Notes, Material Checker Notes, Medications, Allergies Allergies: Coded Allergies: Penicillins (Verified Allergy, Unknown, 06/22/24) Home Meds Active Scripts Doxycycline Monohydrate (Doxycycline Monohydrate) 100 Mg Cap, 1 CAP PO BID for 3 Days, #6 CAP 0 Refills Prov:YASIR WHEAT MD 06/26/24 Prednisone (Prednisone) 20 Mg Tab, 40 MG PO DAILY for 3 Days, #6 MG 0 Refills Prov:YASIR WHEAT MD 06/26/24 Reported Medications Furosemide (Furosemide) 20 Mg Tab, 20 MG PO DAILY, MG 06/24/24 Oxycodone W/ Acetaminophen (Percocet 5/325MG) 1 Tab Tb, 1 TAB PO BID, #60 TAB 06/23/24 Omeprazole (Gnp Omeprazole) 20 Mg Tab, 1 TAB PO DAILY, #90 TAB 1 Refill 06/23/24 Omeprazole (Prilosec Susp (For Gt)) 20 Mg Ss, 20 MG GT, ML 06/23/24 Aspirin (Aspir-Low) 81 Mg Tab, 81 MG PO DAILY for 30 Days, MG 06/23/24 Citalopram Hydrobromide (Citalopram Hydrobromide) 20 Mg Tab, 20 MG PO DAILY for 30 Days, MG 06/23/24 Information Source: Patient, Emergency Med Personnel Mode of Arrival: EMS Severity: Moderate Timing: Minutes Duration: Since onset Prehospital treatment: 12 Lead EKG, Breathing Tx, Sandblaster Paint Sprayer Past Medical History PAST MEDICAL HISTORY: Asthma, CHF, COPD, HTN Past Medical History (Other): obesity Surgical History: Denies all surgeries RN DIABETES History: Denies all RN DIABETES Hx Family History Family History: Reviewed,noncontributory to illness Social History Smoker: Non-Smoker Alcohol: Denies ETOH Use Drugs: Denies Drug Use Lives In: Home Respiratory: reports: cough, shortness of breath, wheezing All Other Systems: Reviewed and Negative (negative unless otherwise stated a rafael or in HPI) Physical Exam General Appearance: Mild Distress, Obese HEENT: Normal ENT Inspection, Pharynx Normal, TMs Normal Neck: Full Range of Motion, Non-Tender, Normal, Normal Inspection Respiratory: Chest Non-Tender, No Accessory Muscle Use, Wheezing (bilateral wheezing) Cardiovascular: No Edema, No JVD, No Murmur, No Gallop, Normal Peripheral Pulses, Regular Rate/Rhythm Breast Exam: Deferred Gastrointestinal: No Organomegaly, Non Tender, No Pulsatile Mass, Normal Bowel Sounds, Soft Genitalia: Deferred Pelvic: Deferred Rectal: Deferred Extremities: No calf tenderness, Normal capillary refill, Normal inspection, Normal range of motion, Non-tender, No pedal edema Musculoskeletal : Apperance: Normal Neurologic: Alert, it application administrator II-XII nml as Tested, No Motor Deficits, Normal Affect, Normal Mood, No Sensory Deficits Cerebellar Function: Normal Reflexes: Normal Skin: Dry, Normal Color, Warm Lymphatic: No Adenopathy Was a procedure done? Was a procedure done?: No EKG EKG : Pulse Rate (adult): 70 Young: Normal Cardiac Rhythm: NSR Block: None Hypertrophy: None ST: Normal Differential Dx Considerations may include: CHF exacerbation, COPD exacerbation, asthma exacerbation, URI, PE, OR, PNA, Covid19, bronchitis, pleural effusions, viral syndrome X-Ray, Labs, Meds, VS Vital Signs Date Time Temp Pulse Resp B/P (MAP) Pulse Ox O2 Delivery O2 Flow Rate FiO2 06/27/24 20:47 18 92 Room Air* 0 21 06/27/24 20:43 70 06/27/24 20:18 70 06/27/24 20:10 22 92 Room Air* 0 21 06/27/24 20:10 99.1 74 22 126/66 (86) 92 Current Medications Medications (Trade) Dose Ordered Sig/Matilda Route Start Time Stop Time Status Last Admin Methylprednisolone Sodium Succinate (Solu Medrol) 250 mg ONCE ONCE IM 06/27/24 20:30 06/27/24 20:31 DC 06/27/24 22:04 Albuterol (Ventolin Medneb) 10 mg ONCE ONCE NEB 06/27/24 20:30 06/27/24 20:31 DC 06/27/24 20:47 Ipratropium [place] (Atrovent Medneb) 0.5 mg ONCE ONCE NEB 06/27/24 20:30 06/27/24 20:31 DC 06/27/24 20:47 [place] [address] Ph: [phone] DIAGNOSTIC IMAGING Diagnostic Imaging Report : [id number] Signed PATIENT: NATASHA GUEVARA ACCT: [id number] UNIT: [id number] : 1950 LOC: ER ROOM / BED: / AGE / SEX: 73 / F ADM STATUS: REG ER SERVICE 23 ORDERING PHYSICIAN: ELISA PALACIOS MD PROCEDURE(s): CXR1 - CHEST XRAY 1 VIEW REASON: sob ORDER NUMBER(s): [id number], ACCESSION NUMBER(s): [id number] CHEST RADIOGRAPH Indication: sob Technique: Single frontal view of the chest was obtained Comparison: XY CHEST XRAY 1 VIEW on DOS: 06/24/24, XY CHEST PORTABLE on DOS: 06/22/24 FINDINGS: Lines and Tubes: None Lungs: Increased pulmonary densities over the lung bases may be due to airspace disease or soft tissues of the breast. Pleura: No effusion. No pneumothorax. Cardiomediastinal contours: Unremarkable Bones: No acute osseous abnormality. IMPRESSION: 1. Increased pulmonary densities in the lung govea may be secondary to patient's breasts or airspace disease. HS:Y . ATED BY: RD ALMONTE Jr., DO DICTATED DATE/TIME: 06/27/242324 SIGNED BY: RD ALMONTE Jr., SIGNED DATE/TIME: 06/27/242324 CC: The patient was given Solu-Medrol 250 mg IM in a DuoNeb treatment. Patient was just discharged yesterday in her O2 saturation on room air is 92%. The patient will be discharged to follow up with the primary care physician Time of 1ST Reevaluation: 20:30 Reevaluation 1ST: Unchanged Patient Education/Counseling: Diagnosis, Treatment Family Education/Counseling: No Family Present Departure 1 Departure Time of Disposition: 23:48 Impression: Primary Impression: URI (upper respiratory infection) Qualified Codes: J06.9 - Acute upper respiratory infection, unspecified Additional Impression: Lung cancer Disposition: HOME / SELF CARE / HOMELESS Condition: Stable Additional Instructions: Reassessed patient, vital signs stable. Denies any new symptoms. Patient is able to tolerate PO and ambulate/be mobile at their baseline without concern. Risks and benefits of all medications given or prescribed, if any, discussed. All lab work, imaging and diagnostic studies were reviewed by me. The patient was counseled extensively on my clinical impression, diagnosis, expected course of the disease, and plan, including their follow-up care. Will discharge patient. Patient instructed to follow up with Primary Care Physician within 24-48 hours. Strict return precautions given for further exacerbation of symptoms or for new symptoms. The patient was given the opportunity to ask questions and all questions were answered by myself and the nursing/tech staff. Patient is in agreement with the care plan. The patient verbally expressed understanding of the discharge instructions, including the reasons to return to the Emergency Department. Discharged With: Self Critical Care Note Critical Care Time?: No Stability Stability form required: No Heart Score Heart Score: Heart Score Response (Comments) Value History Moderate Suspicious 1 EKG Normal 0 Age >65 2 Risk Factors >3 or Hx ASHD 2 Troponin N/A 0 Total 5 I personally scribed for ELISA PALACIOS MD ([email or web address]) on 06/27/24 at 20:43. Electronically submitted by Acosta Flor ([email or web address]). ELISA PALACIOS MD Jun 27, 2024 20:43
[2024-06-27] MEDS: IPRATROPIUM BROM 0.5 MG/2.5ML INH SOL NEB ONE (20:47)
[2024-06-27] MEDS: ALBUTEROL SULF 2.5 MG/0.5ML(0.5%) NEB SOLN NEB ONE (20:47)
[2024-06-27] MEDS: methylPREDNISolone SOD SUCC 125 MG/2 ML VL IM ONE (22:04)
--- NOTE | 2024-06-27 23:28 | DVH ---
CHEST RADIOGRAPH Indication: sob Technique: Single frontal view of the chest was obtained Comparison: XY CHEST XRAY 1 VIEW on DOS: 06/24/24, XY CHEST PORTABLE on DOS: 06/22/24 FINDINGS: Lines and Tubes: None Lungs: Increased pulmonary densities over the lung bases may be due to airspace disease or soft tissu es of the breast. Pleura: No effusion. No pneumothorax. Cardiomediastinal contours: Unremarkable Bones: No acute osseous abnormality. IMPRESSION: 1. Increased pulmonary densities in the lung govea may be secondary to patient's breasts or airspace disease. HS:Y .
[2024-06-28 00:24] VITALS: BP 127/77; PULSE 84; RESP 20; TEMP 98.2; O2SAT 95
--- NOTE | 2024-06-29 06:34 | ECG ---
[facility] Test Date: 2024-06-27 Test Time: 20:18:07 Pat Name: NATASHA GUEVARA Department: ER Room: Gender: F Measurement Supervisor: : 1950 Requested By: ELISA PALACIOS Order Number: [id number] Reading MD: Rigoberto Jennings Measurements Intervals Ryan Rate: 70 P: 42 MO: 141 QRS: -6 QRSD: 83 T: 28 QT: 439 QTc: 474 Interpretive Statements Sinus rhythm Electronically Signed On 06-29-2024 18:19:20 PST by Rigoberto Jennings Please click the below link to view image of tracing.
== END 2024-06-28 00:31 | disposition home or self-care (01) ==
LOC: ER 20:05 → EDBD 20:05 → ER 06-28 00:31
DX: C34.90 Malignant neoplasm of unspecified part of unspecified bronchus or lung (principal); C79.9 Secondary malignant neoplasm of unspecified site; J06.9 Acute upper respiratory infection, unspecified; I11.0 Hypertensive heart disease with heart failure; I50.9 Heart failure, unspecified; J44.9 Chronic obstructive pulmonary disease, unspecified; E66.9 Obesity, unspecified; Z68.35 Body mass index [BMI] 35.0-35.9, adult; Z88.0 Allergy status to penicillin; Z79.52 Long term (current) use of systemic steroids; Z79.82 Long term (current) use of aspirin; Z79.899 Other long term (current) drug therapy
CPT/HCPCS: 71045; 93005; 94640; 99283; J2919